=== PATIENT | female | born 1930 | race Caucasian/White ===

== ENCOUNTER 2017-11-27 20:42 | Emergency (ER) | payer MEDICAID, MEDICARE ==
[~2017-11-27] VITALS: Ht 162.6 cm; Wt 85.3 kg
[~2017-11-27 20:42] MED LIST: AMO500 PO; AMOX-355 PO; ASP81 PO; CIP500 PO; CIPR-326 PO; ESOM20CA31 PO; GAB300 PO; GABA-547 PO; LOR5 PO; MET500 PO; PER PO; PHENA100 PO; RANI-320 PO; SIMV-44 PO; SPIR25TA78 PO; SULF-198 PO; TOLT4CAP13 PO
--- NOTE | 2017-11-27 20:45 | ER Report ---
History and Physical Time Seen By MD: 20:45 HPI/ROS CHIEF COMPLAINT: Difficulty breathing, wet cough HISTORY OF PRESENT ILLNESS: 87-year-old female with a history of COPD O2 dependent on 2 L chronically. Been sick for 2 weeks. She diagnosed herself with what she thinks was the flu. She's continued to have a productive cough. She was feeling ill but has felt better now, but the cough persists, which worries her. She is unable to cough up any sputum or phlegm. She denies fever or chills. She denies chest pain. She denies leg swelling or calf pain. Patient with her padded of harsh wet cough REVIEW OF SYSTEMS: Respiratory: As above Cardiovascular: No chest pain, no palpitations. Gastrointestinal: No vomiting, no abdominal pain. Musculoskeletal: No back pain. Allergies: Coded Allergies: diphenhydramine (Verified Adverse Reaction, Mild, 10/27/14) Uncoded Allergies: ANESTHETICS (Allergy, Severe, MALIGNANT HYPERTHERMIA, 02/24/09) Home Meds Active Scripts Benzonatate 100 Mg Cap (TESSALON PERLE 100 MG CAP) 100 Mg Capsule, 100 MG PO TID Y for cough suppression, #20 CAP Prov:MINGEVELYN DO 11/27/17 Prednisone 10 Mg Tab (PREDNISONE 10 MG TAB) 10 Mg Tablet, 10 MG PO QDAY Y for reduce lung inflammation, #9 2 tabs daily for 3 days 1 tab daily for 3 days Prov:MINGEVELYN Will DO 11/27/17 Cefuroxime Axetil (CEFUROXIME) 250 Mg Tablet, 250 MG PO BID for infection, #14 TAB Prov:EVELYN LAI DO 11/27/17 Reported Medications Oxycodone Hcl/Acetaminophen (PERCOCET 5-325 MG TABLET) 1 Each Tablet, 1 EACH PO , TAB 11/27/17 Gabapentin (GABAPENTIN) 100 Mg Capsule, 100 MG PO TID, CAPSULE 10/27/14 Spironolactone (Spironolactone) 25 Mg Tablet, 12.5 MG PO DAILY, 0 Refills 09/08/10 Aspirin (Childrens Chewable Aspirin) 81 Mg Chew, 81 MG PO QDAY 09/08/10 Past Medical/Surgical History Patient has a past medical history of a cervical vascular accident, hypertension , asthma, pneumonia, COPD, urinary tract infections, arthritis, back pain. Patient has a surgical history of hysterectomy,. Aches and has a family history of malignant hyperthermia, diabetes, cervical vascular accident, coronary artery disease. Reviewed Nurses Notes: Yes Old Medical Records Reviewed: Yes Hx Smoking: Yes Smoking Status: Former Smoker Hx Substance Use Disorder: No Hx Alcohol Use: No Constitutional Vital Sign - Last 24 Hours 11/27/17 11/27/17 11/27/17 11/27/17 20:47 20:48 20:59 21:00 Temp 98.0 Pulse 84 70 Resp 20 B/P (MAP) 179/102 179/102 (127) Pulse Ox 85 94 O2 Delivery Room Air O2 Flow Rate 2.0 11/27/17 11/27/17 11/27/17 11/27/17 21:03 21:15 21:15 21:15 Pulse 62 62 Resp 19 16 B/P (MAP) 108/83 (91) Pulse Ox 98 94 O2 Delivery Nasal Cannula O2 Flow Rate 2.0 11/27/17 11/27/17 11/27/17 21:21 22:00 22:20 Pulse 67 62 64 Resp 16 14 B/P (MAP) 147/60 (89) 120/68 (85) Pulse Ox 94 95 O2 Delivery Nasal Cannula O2 Flow Rate 2 Physical Exam General Appearance: The patient is alert, has no immediate need for airway protection and no current signs of toxicity. Vital signs stable, pulse ox normal on baseline 2 L HEENT: Pupils equal and round no injection. TMs normal, oropharynx with moderate erythema, no exudate or petechiae Respiratory: Expiratory wheezing throughout lung davalos, no Rales Cardiac: regular rate and rhythm Gastrointestinal: Abdomen is soft and non tender, no masses, bowel sounds normal. Musculoskeletal: Neck: Neck is supple and non tender. No lymphadenopathy, no JVD Extremities have full range of motion and are non tender. Skin: No rashes or lesions. DIFFERENTIAL DIAGNOSIS: After history and physical exam differential diagnosis was considered for shortness of breath including but not limited to pulmonary infectious process, COPD, asthma, pulmonary embolus and congestive heart failure. Medical Decision Making Data Points Result Diagram: 11/27/17205711/27/172057 Laboratory Hematology Test 11/27/17 20:58 11/27/17 21:10 Red Blood Count 4.73 M/uL (4.17-5.56) Mean Corpuscular Volume 88.4 fL (80.0-96.0) Mean Corpuscular Hemoglobin 29.9 pg (26.0-33.0) Mean Corpuscular Hemoglobin Concent 33.9 g/dL (32.0-36.0) Red Cell Distribution Width 13.1 % (11.5-14.5) Mean Platelet Volume 9.9 fL (7.2-11.1) Neutrophils (%) (Auto) 52.8 % (39.4-72.5) Lymphocytes (%) (Auto) 35.6 % (17.6-49.6) Monocytes (%) (Auto) 6.5 % (4.1-12.4) Eosinophils (%) (Auto) 2.1 % (0.4-6.7) Basophils (%) (Auto) 3.0 % (0.3-1.4) Nucleated RBC Relative Count (auto) 0.0 /100WBC Neutrophils # (Auto) 4.7 K/uL (2.0-7.4) Lymphocytes # (Auto) 3.2 K/uL (1.3-3.6) Monocytes # (Auto) 0.6 K/uL (0.3-1.0) Eosinophils # (Auto) 0.2 K/uL (0.0-0.5) Basophils # (Auto) 0.3 K/uL (0.0-0.1) Nucleated RBC Absolute Count (auto) 0.00 K/uL Sodium Level 142 mmol/L (137-145) Potassium Level 3.8 mmol/L (3.5-5.0) Chloride Level 105 mmol/L (98-107) Carbon Dioxide Level 27 mmol/L (22-31) Blood Urea Nitrogen 15 mg/dl (7-18) Creatinine 0.60 mg/dl (0.52-1.04) Glomerular Filtration Rate Calc > 60.0 Random Glucose 117 mg/dl (75-110) Lactate 2.0 mmol/L (0.7-2.1) Calcium Level 9.3 mg/dl (8.4-10.2) Total Bilirubin 0.5 mg/dl (0.2-1.3) Aspartate Amino Transf (AST/SGOT) 31 U/L (0-35) Alanine Aminotransferase (ALT/SGPT) 33 U/L (0-56) Alkaline Phosphatase 93 U/L (0-126) Troponin I < 0.012 ng/ml C-Reactive Protein < 0.5 mg/dl (<1.0) B-Type Natriuretic Peptide 128 pg/ml (0-100) Total Protein 6.9 gm/dl (6.3-8.2) Albumin 3.9 g/dl (3.5-5.0) Influenza Type A Antigen Negative (NEGATIVE) Influenza Type B Antigen Negative (NEGATIVE) Chemistry Test 11/27/17 20:58 11/27/17 21:10 White Blood Count 8.9 k/uL (4.5-11.0) Red Blood Count 4.73 M/uL (4.17-5.56) Hemoglobin 14.2 g/dL (12.0-16.0) Hematocrit 41.8 % (34.0-47.0) Mean Corpuscular Volume 88.4 fL (80.0-96.0) Mean Corpuscular Hemoglobin 29.9 pg (26.0-33.0) Mean Corpuscular Hemoglobin Concent 33.9 g/dL (32.0-36.0) Red Cell Distribution Width 13.1 % (11.5-14.5) Platelet Count 219 K/uL (150-450) Mean Platelet Volume 9.9 fL (7.2-11.1) Neutrophils (%) (Auto) 52.8 % (39.4-72.5) Lymphocytes (%) (Auto) 35.6 % (17.6-49.6) Monocytes (%) (Auto) 6.5 % (4.1-12.4) Eosinophils (%) (Auto) 2.1 % (0.4-6.7) Basophils (%) (Auto) 3.0 % (0.3-1.4) Nucleated RBC Relative Count (auto) 0.0 /100WBC Neutrophils # (Auto) 4.7 K/uL (2.0-7.4) Lymphocytes # (Auto) 3.2 K/uL (1.3-3.6) Monocytes # (Auto) 0.6 K/uL (0.3-1.0) Eosinophils # (Auto) 0.2 K/uL (0.0-0.5) Basophils # (Auto) 0.3 K/uL (0.0-0.1) Nucleated RBC Absolute Count (auto) 0.00 K/uL Glomerular Filtration Rate Calc > 60.0 Lactate 2.0 mmol/L (0.7-2.1) Calcium Level 9.3 mg/dl (8.4-10.2) Total Bilirubin 0.5 mg/dl (0.2-1.3) Aspartate Amino Transf (AST/SGOT) 31 U/L (0-35) Alanine Aminotransferase (ALT/SGPT) 33 U/L (0-56) Alkaline Phosphatase 93 U/L (0-126) Troponin I < 0.012 ng/ml C-Reactive Protein < 0.5 mg/dl (<1.0) B-Type Natriuretic Peptide 128 pg/ml (0-100) Total Protein 6.9 gm/dl (6.3-8.2) Albumin 3.9 g/dl (3.5-5.0) Influenza Type A Antigen Negative (NEGATIVE) Influenza Type B Antigen Negative (NEGATIVE) EKG/Imaging EKG Interpretation 12 lead EK Rhythm: normal sinus rhythm [place]: normal QRS: normal ST segments: normal, diffuse T-wave flattening, nonspecific, comparison to previous EKG 06/22/16, no significant change Imaging X-ray: Two-view chest x-ray was obtained. I viewed the images myself on the PACS system. My interpretation of the images is: No infiltrate, no effusion, normal mediastinum. There is eventration of the right hemidiaphragm, Comparison to previous chest x-ray 06/22/60, no significant change. [The radiologist interpretation had no clinically significant variation from this interpretation]. ED Course/Re-evaluation Clinical Indication for ER IV: IV Access ED Course Patient was admitted to an examination room. H&P was done. The differential diagnoses was considered. On clinical examination, patient appears with what deep cough, repetitive coughing fits. She is unable to produce any sputum. She 's had no fevers. She states she does not feel particularly ill. Her vital signs are stable. Diagnostic evaluation is undertaken. EKG shows no evidence of ischemic changes compared to old EKG. Her chest x-ray is clear. Her white blood cell count is normal, without left shift. CRP is less than 0.5. Her lactate is normal. Her troponin is normal. Her BMP is slightly elevated. Patient's treated with a DuoNeb and Solu-Medrol 125 mg IV. Patient's results were discussed with her. See no indication for admission. However, she will likely need a course of antibiotics and a prednisone taper to improve her airway disease. She is advised to follow-up with primary care if unimproved in 3-5 days. Decision to Disposition Date: Nov 27, 2017 Decision to Disposition Time: 21:49 Depart Departure Latest Vital Signs Vital Signs Date Time Temp Pulse Resp B/P (MAP) Pulse Ox O2 Delivery O2 Flow Rate FiO2 11/27/17 22:20 64 14 120/68 (85) 95 Nasal Cannula 2 11/27/17 20:47 98.0 Impression: Primary Impression: COPD with acute exacerbation Condition: Improved Disposition: HOME OR SELF-CARE Referrals: MARIANA ALEXANDRA (PCP) New Scripts Benzonatate 100 Mg Cap (TESSALON PERLE 100 MG CAP) 100 Mg Capsule 100 MG PO TID Y for cough suppression, #20 CAP Prov: EVELYN LAI DO 11/27/17 Prednisone 10 Mg Tab (PREDNISONE 10 MG TAB) 10 Mg Tablet 10 MG PO QDAY Y for reduce lung inflammation, #9 2 tabs daily for 3 days 1 tab daily for 3 days Prov: EVELYN LAI DO 11/27/17 Cefuroxime Axetil (CEFUROXIME) 250 Mg Tablet 250 MG PO BID for infection, #14 TAB Prov: EVELYN LAI DO 11/27/17 Patient Instructions: Acute Bronchitis (ED), COPD (Chronic Obstructive Pulmonary Disease) (ED) Additional Instructions: Follow-up with your primary care physician if unimproved in 3-5 days EVELYN LAI DO Nov 27, 2017 20:45
[2017-11-27] MEDS ORDERED: NS(*) 0.9% 500 ML BAG 500 ML IV ONE (20:50)
[2017-11-27] MEDS ORDERED: methylPREDNIS SUCC 125 MG/2ML IVP ONE (20:50)
[2017-11-27] MEDS ORDERED: ALBUTEROL/IPRATROPIUM 3 ML NEB NEB ONE (20:50)
[2017-11-27] MEDS ORDERED: OXYC-865 PO (20:58)
[2017-11-27 21:16] LABS: PLATELET COUNT, AUTOMATED 219 K/uL (150-450)
--- NOTE | 2017-11-27 21:29 | EKG ---
FACILITY: [facility] PATIENT NAME: SHEEBA NEVILLE : [id number] MR: [id number] V: [id number] EXAM DATE: ORDERING PHYSICIAN: EVELYN LAI TECHNOLOGIST: FATIMAH Test Reason : DYSPNEA Blood Pressure : / mmHG Vent. Rate : 065 BPM Atrial Rate : 065 BPM P-R Int : 152 ms QRS Dur : 080 ms QT Int : 396 ms P-R-T Axes : 027 -35 017 degrees QTc Int : 411 ms Normal sinus rhythm Left axis deviation Nonspecific T wave abnormality R wave progression consistent with old ant/sep IA vs lead placement When compared with ECG of 22-JUN-2016 11:20, premature atrial complexes are no longer present QT has shortened Confirmed by CLARENCE AZUL ([id number]) on 11/28/2017 6:42:03 AM Referred By: Confirmed By:CLARENCE AZUL
[2017-11-27] MEDS ORDERED: PRED-1 PO (22:04)
[2017-11-27] MEDS ORDERED: CEFU250T11 PO (22:04)
[2017-11-27] MEDS ORDERED: BENZ100C4 PO (22:05)
[2017-11-27] MEDS ORDERED: CEFDINIR 300 MG CAP PO ONE (22:15)
[2017-11-27 22:20] VITALS: BP 120/68
--- NOTE | 2017-11-27 22:26 | RADIOLOGY IMAGING REPORT ---
[place] [facility] [place] NAME: Danielle Jaime : 1930 MR: [id number] V: [id number] EXAM DATE: ORDERING PHYSICIAN: EVELYN LAI TECHNOLOGIST: Location: [facility] [place] Patient: Danielle Jaime : 1930 Visit/Account:[id number] Date of Sevice: 11/27/2017 CHEST: Indication: Persistent cough and fever. Technique: Frontal and lateral views were obtained. Comparison: 09/03/2010 Skeletal and soft tissue structures: Intact and unremarkable. Heart and mediastinum: Within normal limits. Lung davalos: Well-expanded and clear. No focal or diffuse opacities. Pleural spaces: Unremarkable. Impression: No acute process or significant change. Report Dictated By: Isiah Huston MD at 11/27/2017 10:16 PM Report E-Signed By: Isiah Huston MD at 11/27/2017 10:21 PM [id number]
== END 2017-11-27 22:21 | disposition home or self-care (01) ==
LOC: ER 21:14
DX: J44.1 Chronic obstructive pulmonary disease with (acute) exacerbation (principal)
CPT/HCPCS: 36415; 71046; 83605; 83880; 84484; 85025; 86140; 87040; 87502; 93005; 94640; 99284; A9270; J2930; J7040; J7620; 82040; 82247; 82310; 82374; 82435; 82565; 82947; 84075; 84132; 84155; 84295; 84450; 84460; 84520; 96374

== ENCOUNTER 2018-01-29 16:25 | Observation (INO) | payer MEDICARE ==
[~2018-01-29] VITALS: Ht 162.6 cm; Wt 81.6 kg
[~2018-01-29 16:25] MED LIST changes: -GABA-549 PO; -LEVO25TA57 PO; -LEVO50TA86 PO; -LISI2.5T60 PO; -LISI5TAB25 PO; -OXYC-375 PO; -SIMV-54 PO; -SOLI5TAB PO
[2018-01-29] MEDS ORDERED: LEVO25TA57 PO (16:39)
[2018-01-29] MEDS ORDERED: ONDANSETRON 4 MG/2 ML VIAL IVP ONE ×4 (16:40→19:10)
[2018-01-29] MEDS ORDERED: SIMV-54 PO (16:41)
[2018-01-29] MEDS ORDERED: LISI5TAB25 PO (16:41)
--- NOTE | 2018-01-29 16:47 | ER Report ---
History and Physical Time Seen By MD: 16:39 Hx. of Stated Complaint: PT FELL WHILE TAKING CLOTHES OUT OF DRYER 30 MIN AGO (HEVER MARTINEZ) HPI/ROS CHIEF COMPLAINT: Right ankle pain HISTORY OF PRESENT ILLNESS: 87-year-old female patient presents to emergency room with complaint of right ankle pain. Patient states that she was getting close out of her dryer when she fell. She states she landed awkwardly on her right leg. She sensation having significant amounts of pain. She denies having any numbness or tingling to her ankle. EMS was contacted and they did come and bring the patient to the emergency room. She denies any head injury, neck pain, vomiting or diarrhea. Patient has been nauseated throughout the day. She states she is not taking any medication for this. REVIEW OF SYSTEMS: Respiratory: No cough, no dyspnea. Cardiovascular: No chest pain, no palpitations. Gastrointestinal: As noted above Musculoskeletal: As noted above (HEVER MARTINEZ) Allergies: Coded Allergies: diphenhydramine (Verified Adverse Reaction, Mild, 01/29/18) Uncoded Allergies: ANESTHETICS (Allergy, Severe, MALIGNANT HYPERTHERMIA, 02/24/09) Home Meds Reported Medications Lisinopril (LISINOPRIL) 5 Mg Tablet, 2.5 MG PO QDAY, TAB 01/29/18 Simvastatin (SIMVASTATIN) 40 Mg Tablet, 40 MG PO HS, TAB 01/29/18 Levothyroxine Sodium (SYNTHROID) 25 Mcg Tablet, 50 MCG PO QDAY 01/29/18 Oxycodone Hcl/Acetaminophen (PERCOCET 5-325 MG TABLET) 1 Each Tablet, 1 EACH PO , TAB 11/27/17 Gabapentin (GABAPENTIN) 100 Mg Capsule, 100 MG PO TID, CAPSULE 10/27/14 Spironolactone (Spironolactone) 25 Mg Tablet, 12.5 MG PO DAILY, 0 Refills 09/08/10 Aspirin (Childrens Chewable Aspirin) 81 Mg Chew, 81 MG PO QDAY 09/08/10 Discontinued Scripts Benzonatate 100 Mg Cap (TESSALON PERLE 100 MG CAP) 100 Mg Capsule, 100 MG PO TID Y for cough suppression, #20 CAP Prov:EVELYN LAI DO 11/27/17 Prednisone 10 Mg Tab (PREDNISONE 10 MG TAB) 10 Mg Tablet, 10 MG PO QDAY Y for reduce lung inflammation, #9 2 tabs daily for 3 days 1 tab daily for 3 days Prov:EVELYN LAI DO 11/27/17 Cefuroxime Axetil (CEFUROXIME) 250 Mg Tablet, 250 MG PO BID for infection, #14 TAB Prov:EVELYN LAI DO 11/27/17 Past Medical/Surgical History Patient has a past medical history of CVA, hypertension, murmur, asthma, pneumonia, COPD, diabetes, frequent UTIs, back pain. Patient has a surgical history of hysterectomy. Patient has a family medical history of CAD, stroke, malignant hyperthermia with her siblings. (HEVER MARTINEZ) Reviewed Nurses Notes: Yes (HEVER MARTINEZ) Hx Smoking: Yes Smoking Status: Former Smoker Hx Substance Use Disorder: No Hx Alcohol Use: No (HEVER MARTINEZ) Constitutional Vital Sign - Last 24 Hours 01/29/18 01/29/18 01/29/18 01/29/18 16:25 16:26 16:26 16:30 Temp 98.5 Pulse ??? 73 Resp 20 B/P (MAP) 116/69 (85) 116/69 123/73 (90) Pulse Ox 82 O2 Delivery Room Air 01/29/18 01/29/18 01/29/18 01/29/18 16:35 16:40 16:45 16:50 B/P (MAP) 123/74 (90) 113/66 (82) 109/101 (104) 123/65 (84) 01/29/18 01/29/18 01/29/18 01/29/18 16:55 17:00 17:05 17:10 Pulse 69 B/P (MAP) 116/80 (92) 125/77 (93) 101/82 (88) 140/55 (83) Pulse Ox 92 01/29/18 01/29/18 01/29/18 18:45 18:46 19:00 Pulse 79 109 Resp 20 15 B/P (MAP) 125/101 (109) 163/90 (114) 167/65 (99) Pulse Ox 95 Intake and Output 01/29/18 01/29/18 01/30/18 15:00 23:00 07:00 Output Total 15 ml Balance -15 ml (CASI CORREIA MD) Physical Exam General Appearance: The patient is alert, has no immediate need for airway protection and no current signs of toxicity. Respiratory: Chest is non tender, lungs are clear to auscultation. Cardiac: regular rate and rhythm Gastrointestinal: Abdomen is soft and non tender, no masses, bowel sounds normal. Musculoskeletal: Neck: Neck is supple and non tender. Extremities have full range of motion and are non tender. She does have obvious deformity of the right ankle, bruising noted to the medial malleolus. Skin: No rashes or lesions. DIFFERENTIAL DIAGNOSIS: After history and physical exam differential diagnosis was considered for fracture, dislocation (HEVER MARTINEZ) Medical Decision Making Data Points Result Diagram: 01/29/18 1614 01/29/18 1614 Laboratory Hematology Test 01/29/18 16:14 01/29/18 17:46 Red Blood Count 4.75 M/uL (4.17-5.56) Mean Corpuscular Volume 89.6 fL (80.0-96.0) Mean Corpuscular Hemoglobin 29.8 pg (26.0-33.0) Mean Corpuscular Hemoglobin Concent 33.2 g/dL (32.0-36.0) Red Cell Distribution Width 13.0 % (11.5-14.5) Mean Platelet Volume 10.3 fL (7.2-11.1) Neutrophils (%) (Auto) 59.4 % (39.4-72.5) Lymphocytes (%) (Auto) 31.2 % (17.6-49.6) Monocytes (%) (Auto) 7.4 % (4.1-12.4) Eosinophils (%) (Auto) 1.6 % (0.4-6.7) Basophils (%) (Auto) 0.4 % (0.3-1.4) Nucleated RBC Relative Count (auto) 0.0 /100WBC Neutrophils # (Auto) 5.2 K/uL (2.0-7.4) Lymphocytes # (Auto) 2.7 K/uL (1.3-3.6) Monocytes # (Auto) 0.7 K/uL (0.3-1.0) Eosinophils # (Auto) 0.1 K/uL (0.0-0.5) Basophils # (Auto) 0.0 K/uL (0.0-0.1) Nucleated RBC Absolute Count (auto) 0.00 K/uL Sodium Level 140 mmol/L (137-145) Potassium Level 3.8 mmol/L (3.5-5.0) Chloride Level 99 mmol/L (98-107) Carbon Dioxide Level 29 mmol/L (22-31) Blood Urea Nitrogen 16 mg/dl (7-18) Creatinine 0.70 mg/dl (0.52-1.04) Glomerular Filtration Rate Calc > 60.0 Random Glucose 146 mg/dl (75-110) Calcium Level 9.4 mg/dl (8.4-10.2) Total Bilirubin 0.5 mg/dl (0.2-1.3) Aspartate Amino Transf (AST/SGOT) 29 U/L (0-35) Alanine Aminotransferase (ALT/SGPT) 34 U/L (0-56) Alkaline Phosphatase 92 U/L (0-126) Total Protein 7.1 gm/dl (6.3-8.2) Albumin 4.1 g/dl (3.5-5.0) Lipase 73 U/L (23-300) Urine Color Yellow Urine Clarity Clear Urine pH 5.0 pH (4.8-9.5) Urine Specific [place] 1.027 Urine Protein Negative mg/dL (NEGATIVE) Urine Glucose (UA) Negative mg/dL (NEGATIVE) Urine Ketones Negative mg/dL (NEGATIVE) Urine Blood Negative (NEGATIVE) Urine Nitrite Negative (NEGATIVE) Urine Bilirubin Negative (NEGATIVE) Urine Urobilinogen 2.0 mg/dL (0.2-1.9) Urine Leukocyte Esterase Negative (NEGATIVE) Urine RBC <1 /HPF (0-2/HPF) Urine WBC 1 /HPF (0-5/HPF) Urine Squamous Epithelial Cells None /LPF (NONE-FEW) Urine Bacteria Negative /HPF (NONE-FEW) Urine Mucus None /HPF (NONE-FEW) Chemistry Test 01/29/18 16:14 01/29/18 17:46 White Blood Count 8.8 k/uL (4.5-11.0) Red Blood Count 4.75 M/uL (4.17-5.56) Hemoglobin 14.2 g/dL (12.0-16.0) Hematocrit 42.6 % (34.0-47.0) Mean Corpuscular Volume 89.6 fL (80.0-96.0) Mean Corpuscular Hemoglobin 29.8 pg (26.0-33.0) Mean Corpuscular Hemoglobin Concent 33.2 g/dL (32.0-36.0) Red Cell Distribution Width 13.0 % (11.5-14.5) Platelet Count 215 K/uL (150-450) Mean Platelet Volume 10.3 fL (7.2-11.1) Neutrophils (%) (Auto) 59.4 % (39.4-72.5) Lymphocytes (%) (Auto) 31.2 % (17.6-49.6) Monocytes (%) (Auto) 7.4 % (4.1-12.4) Eosinophils (%) (Auto) 1.6 % (0.4-6.7) Basophils (%) (Auto) 0.4 % (0.3-1.4) Nucleated RBC Relative Count (auto) 0.0 /100WBC Neutrophils # (Auto) 5.2 K/uL (2.0-7.4) Lymphocytes # (Auto) 2.7 K/uL (1.3-3.6) Monocytes # (Auto) 0.7 K/uL (0.3-1.0) Eosinophils # (Auto) 0.1 K/uL (0.0-0.5) Basophils # (Auto) 0.0 K/uL (0.0-0.1) Nucleated RBC Absolute Count (auto) 0.00 K/uL Glomerular Filtration Rate Calc > 60.0 Calcium Level 9.4 mg/dl (8.4-10.2) Total Bilirubin 0.5 mg/dl (0.2-1.3) Aspartate Amino Transf (AST/SGOT) 29 U/L (0-35) Alanine Aminotransferase (ALT/SGPT) 34 U/L (0-56) Alkaline Phosphatase 92 U/L (0-126) Total Protein 7.1 gm/dl (6.3-8.2) Albumin 4.1 g/dl (3.5-5.0) Lipase 73 U/L (23-300) Urine Color Yellow Urine Clarity Clear Urine pH 5.0 pH (4.8-9.5) Urine Specific [place] 1.027 Urine Protein Negative mg/dL (NEGATIVE) Urine Glucose (UA) Negative mg/dL (NEGATIVE) Urine Ketones Negative mg/dL (NEGATIVE) Urine Blood Negative (NEGATIVE) Urine Nitrite Negative (NEGATIVE) Urine Bilirubin Negative (NEGATIVE) Urine Urobilinogen 2.0 mg/dL (0.2-1.9) Urine Leukocyte Esterase Negative (NEGATIVE) Urine RBC <1 /HPF (0-2/HPF) Urine WBC 1 /HPF (0-5/HPF) Urine Squamous Epithelial Cells None /LPF (NONE-FEW) Urine Bacteria Negative /HPF (NONE-FEW) Urine Mucus None /HPF (NONE-FEW) Urinalysis Test 01/29/18 17:46 Urine Color Yellow Urine Clarity Clear Urine pH 5.0 pH (4.8-9.5) Urine Specific [place] 1.027 Urine Protein Negative mg/dL (NEGATIVE) Urine Glucose (UA) Negative mg/dL (NEGATIVE) Urine Ketones Negative mg/dL (NEGATIVE) Urine Blood Negative (NEGATIVE) Urine Nitrite Negative (NEGATIVE) Urine Bilirubin Negative (NEGATIVE) Urine Urobilinogen 2.0 mg/dL (0.2-1.9) Urine Leukocyte Esterase Negative (NEGATIVE) Urine RBC <1 /HPF (0-2/HPF) Urine WBC 1 /HPF (0-5/HPF) Urine Squamous Epithelial Cells None /LPF (NONE-FEW) Urine Bacteria Negative /HPF (NONE-FEW) Urine Mucus None /HPF (NONE-FEW) (CASI CORREIA MD) EKG/Imaging Imaging Right ankle, 2 views, and right tibia/fibula, 2 views. HISTORY: Fall, pain. Portions of the extremity are obscured by material outside of the patient. An oblique mildly comminuted fracture is present in the distal fibular diametaphysis resulting in moderate dorsal angulation and mild lateral displacement of the distal fragment. The ankle has a mild valgus alignment. An oblique comminuted fracture is present in the base of the medial malleolus resulting in 3-5 mm distraction of intra-articular fragments. The anterior aspect of the talotibial joint is markedly widened. A fracture may be present in the posterior malleolus although this area is partially obscured. Small spurs are present along the plantar and dorsal aspects the calcaneus. Mild soft tissue swelling is present in the ankle. Mild degenerative changes are present in the knee. The tibia and fibula are otherwise unremarkable. IMPRESSION: Ankle fracture dislocation. Report Dictated By: Alex Nunez MD at 01/29/2018 7:35 PM Report E-Signed By: Alex Nunez MD at 01/29/2018 7:39 PM Right ankle, 2 views, and right tibia/fibula, 2 views. HISTORY: Fall, pain. Portions of the extremity are obscured by material outside of the patient. An oblique mildly comminuted fracture is present in the distal fibular diametaphysis resulting in moderate dorsal angulation and mild lateral displacement of the distal fragment. The ankle has a mild valgus alignment. An oblique comminuted fracture is present in the base of the medial malleolus resulting in 3-5 mm distraction of intra-articular fragments. The anterior aspect of the talotibial joint is markedly widened. A fracture may be present in the posterior malleolus although this area is partially obscured. Small spurs are present along the plantar and dorsal aspects the calcaneus. Mild soft tissue swelling is present in the ankle. Mild degenerative changes are present in the knee. The tibia and fibula are otherwise unremarkable. IMPRESSION: Ankle fracture dislocation. Report Dictated By: Alex Nunez MD at 01/29/2018 7:35 PM Report E-Signed By: Alex Nunez MD at 01/29/2018 7:39 PM Right ankle, 2 views. HISTORY: Postreduction. COMPARISON: Right ankle 01/29/2018 at 1017 hours. The ankle is somewhat rotated on the frontal view. Displacement of medial malleolus, posterior malleolus, and distal fibular fracture fragments has decreased compared to previous. The anterior aspect of the talotibial joint is no longer widened. Mild soft tissue swelling is present in the ankle. Fine detail is obscured by overlying casting material. IMPRESSION: Closed reduction of trimalleolar fracture. Report Dictated By: Alex Nunez MD at 01/29/2018 7:42 PM Report E-Signed By: Alex Nunez MD at 01/29/2018 7:45 PM (HEVER MARTINEZ) ED Course/Re-evaluation ED Course Patient was admitted and examined, history and physical were obtained. Differential diagnoses were considered. On examination patient has obvious fracture of the right ankle with dislocation. The skin is tight on the medial aspect, there is bruising noted. Patient had an IV started and was given 50 g of fentanyl. X-rays done of the right ankle showed trimalleolar fracture. I did discuss the case with Dr. Newton, orthopedist. He did actually come into the emergency room to review another patient. He will to that and felt patient likely needed to have surgery. He wanted the patient follow-up with Dr. Tripathi with plan to have surgery next week. We did do a conscious sedation and reduction as described below. Patient was placed in a splint and repeat x-rays were done. The reduction appeared to be successful. A CAT scan was done at the request of Dr. Newton. I discussed the case with Dr. Marcy Arenas, [facility]. I concerned because of her age that she would not be able to go home. I requested the patient be admitted for pain control and physical therapy to help her become more mobile. She verbalized understanding and agreement with this plan. I discussed this with the patient and her daughter and they verbalized understanding and agreement with plan. Procedure: Dislocation reduction. The right ankle was reduced in the usual fashion without complications. Post reduction the patient's neurovascular exam is normal. Post reduction x-ray demonstrates reduction of the joint to the anatomic position. The procedure was performed by myself under direct supervision of Dr. Correia. Procedure: Splint placement. A posterior and stirrup splint was applied. After application of the splint I re-examined the patient. The splint was adequately immobilizing the joint and distal to the splint the patient's circulation and sensation was intact. Decision to Disposition Date: Jan 29, 2018 Decision to Disposition Time: 19:02 (HEVER MARTINEZ) ED Course Procedure: Procedural sedation. A pre-sedation evaluation was completed on the patient. Patient is an appropriate candidate for procedural sedation. The risks of the sedation were discussed with the patient. A time out was completed. The patient was reevaluated immediately prior to initiation of sedation. The patient was sedated with Ketamine. Ketamine was chosen because of concerns that the patient had with family history of malignant hyperthermia. The patient was monitored with continuous pulse oximetry and surveillance system monitor. There were no complications and no significant hypoxemia. I remained at the bedside for the sedation. The total time I spent in the procedural sedation was 20 min. Post sedation evaluation: Patient was alert and cooperative, hemodynamically stable with appropriate respiratory status, temperature and pain control. Had some nausea and vomiting post sedation, treated with anti-emetics as noted. (CASI CORREIA MD) Depart Departure Latest Vital Signs Vital Signs Date Time Temp Pulse Resp B/P (MAP) Pulse Ox O2 Delivery O2 Flow Rate FiO2 01/29/18 19:00 109 15 167/65 (99) 01/29/18 18:45 95 01/29/18 16:26 98.5 Room Air (CASI CORREIA MD) Impression: Primary Impression: Trimalleolar fracture of right ankle Condition: Improved Disposition: Admitted from ER Referrals: RADHA HANKS DO (PCP) [employer]/PA consult with MD: Verbally, Examined Patient MD Consult Note: Assisted with sedation and reduction. See above notes. (CASI CORREIA MD) Problem Qualifiers Primary Impression: Trimalleolar fracture of right ankle Encounter type: initial encounter Fracture type: closed Qualified Codes: S82.851A - Displaced trimalleolar fracture of right lower leg, initial encounter for closed fracture HEVER MARTINEZ Jan 29, 2018 16:47 CASI CORREIA MD Jan 29, 2018 18:56
[2018-01-29] MEDS ORDERED: fentaNYL CITR 100 MCG/2 ML AMP IVP ONE (16:50)
[2018-01-29 16:55] LABS: PLATELET COUNT, AUTOMATED 215 K/uL (150-450)
[2018-01-29] MEDS ORDERED: NS(*) 0.9% 1000 ML BAG 1,000 ML IV ONE ×2 (18:10→18:20)
[2018-01-29] MEDS ORDERED: KETAMINE HCL 200 MG/20 ML MDV IVP ONE (18:20)
[2018-01-29] MEDS ORDERED: KETAMINE HCL 500 MG/5 ML VIAL IVP ONE (18:25)
[2018-01-29] MEDS ORDERED: METOCLOPRAMIDE 10 MG/2 ML SDV IVP ONE (18:55)
--- NOTE | 2018-01-29 19:44 | RADIOLOGY IMAGING REPORT ---
FACILITY: [facility] - [place] PATIENT NAME: Danielle Jaime : 1930 MR: [id number] V: [id number] EXAM DATE: ORDERING PHYSICIAN: HEVER MARTINEZ TECHNOLOGIST: Location: [facility] - [place] Patient: Danielle Jaime : 1930 Visit/Account:[id number] Date of Sevice: 01/29/2018 Right ankle, 2 views, and right tibia/fibula, 2 views. HISTORY: Fall, pain. Portions of the extremity are obscured by material outside of the patient. An oblique mildly comminut ed fracture is present in the distal fibular diametaphysis resulting in moderate dorsal angulation an d mild lateral displacement of the distal fragment. The ankle has a mild valgus alignment. An oblique comminuted fracture is present in the base of the medial malleolus resulting in 3-5 mm distraction o f intra-articular fragments. The anterior aspect of the talotibial joint is markedly widened. A fract ure may be present in the posterior malleolus although this area is partially obscured. Small spurs a re present along the plantar and dorsal aspects the calcaneus. Mild soft tissue swelling is present i n the ankle. Mild degenerative changes are present in the knee. The tibia and fibula are otherwise un remarkable. IMPRESSION: Ankle fracture dislocation. Report Dictated By: Alex Nunez MD at 01/29/2018 7:35 PM Report E-Signed By: Alex Nunez MD at 01/29/2018 7:39 PM WSN:[id number]
--- NOTE | 2018-01-29 19:45 | RADIOLOGY IMAGING REPORT ---
FACILITY: [facility] - [place] PATIENT NAME: Danielle Jaime : 1930 MR: [id number] V: [id number] EXAM DATE: ORDERING PHYSICIAN: HEVER MARTINEZ TECHNOLOGIST: Location: [facility] - [place] Patient: Danielle Jaime : 1930 Visit/Account:[id number] Date of Sevice: 01/29/2018 Right ankle, 2 views, and right tibia/fibula, 2 views. HISTORY: Fall, pain. Portions of the extremity are obscured by material outside of the patient. An oblique mildly comminut ed fracture is present in the distal fibular diametaphysis resulting in moderate dorsal angulation an d mild lateral displacement of the distal fragment. The ankle has a mild valgus alignment. An oblique comminuted fracture is present in the base of the medial malleolus resulting in 3-5 mm distraction o f intra-articular fragments. The anterior aspect of the talotibial joint is markedly widened. A fract ure may be present in the posterior malleolus although this area is partially obscured. Small spurs a re present along the plantar and dorsal aspects the calcaneus. Mild soft tissue swelling is present i n the ankle. Mild degenerative changes are present in the knee. The tibia and fibula are otherwise un remarkable. IMPRESSION: Ankle fracture dislocation. Report Dictated By: Alex Nunez MD at 01/29/2018 7:35 PM Report E-Signed By: Alex Nunez MD at 01/29/2018 7:39 PM WSN:[id number]
--- NOTE | 2018-01-29 19:48 | RADIOLOGY IMAGING REPORT ---
FACILITY: [facility] PATIENT NAME: Danielle Jaime : 1930 MR: [id number] V: [id number] EXAM DATE: ORDERING PHYSICIAN: HEVER MARTINEZ TECHNOLOGIST: Location: [facility] [place] Patient: Danielle Jaime : 1930 Visit/Account:[id number] Date of Sevice: 01/29/2018 Right ankle, 2 views. HISTORY: Postreduction. COMPARISON: Right ankle 01/29/2018 at 1017 hours. The ankle is somewhat rotated on the frontal view. Displacement of medial malleolus, posterior malleo yoli, and distal fibular fracture fragments has decreased compared to previous. The anterior aspect of the talotibial joint is no longer widened. Mild soft tissue swelling is present in the ankle. Fine d etail is obscured by overlying casting material. IMPRESSION: Closed reduction of trimalleolar fracture. Report Dictated By: Alex Nunez MD at 01/29/2018 7:42 PM Report E-Signed By: Alex Nunez MD at 01/29/2018 7:45 PM WSN:[id number]
--- NOTE | 2018-01-29 20:24 | RADIOLOGY IMAGING REPORT ---
FACILITY: [facility] PATIENT NAME: Danielle Jaime : 1930 MR: [id number] V: [id number] EXAM DATE: ORDERING PHYSICIAN: HEVER MARTINEZ TECHNOLOGIST: Location: [facility] - [place] Patient: Danielle Jaime : 1930 Visit/Account:[id number] Date of Sevice: 01/29/2018 EXAMINATION: CT of the right ankle HISTORY: Fracture. TECHNIQUE: Contiguous axial images were obtained through the right ankle without intravenous contras t administration. Coronal and sagittal reformatted images were obtained from the axial source data. One of the following dose optimization techniques was utilized in the performance of this exam: Autom ated exposure control; adjustment of the mA and/or kV according to the patient's size; or use of an i terative reconstruction technique. Specific details can be referenced in the facility's radiology C T exam operational policy. COMPARISON: Right ankle radiographs dated 01/29/2018. FINDINGS: Bones: Mildly displaced trimalleolar fracture. Additional fractures of the anterior lateral corner o f the tibial plafond with small fracture fragments in the joint space. Os trigonum. Small calcaneal b one spurs. Small accessory navicular bone. Joint spaces: Small fracture fragments in the anterior lateral mortise joint. Alignment: Normal. Soft tissues: Mild soft tissue swelling around the fractures. IMPRESSION: 1. Mildly displaced trimalleolar fracture. 2. Additional fracture of the anterior lateral corner of the tibial plafond with small fracture fragm ents in the joint space. Report Dictated By: Reji Moreno MD at 01/29/2018 8:15 PM Report E-Signed By: Reji Moreno MD at 01/29/2018 8:20 PM WSN:[id number]
[2018-01-29 20:38] VITALS: BP 140/59
[2018-01-29] MEDS ORDERED: LISI2.5T60 PO (21:21)
[2018-01-29] MEDS ORDERED: OXYC-375 PO (21:21)
[2018-01-29] MEDS ORDERED: GABA-549 PO (21:22)
[2018-01-29] MEDS ORDERED: LEVO50TA86 PO (21:22)
[2018-01-29] MEDS ORDERED: SOLI5TAB PO (21:22)
[2018-01-29] MEDS ORDERED: PROMETHAZINE 25 MG/ML 1 ML AMP IVP PRN (21:30)
--- NOTE | 2018-01-29 22:27 | History & Physical ---
History of Present Illness Chief Complaint Fall with ankle pain. History of Present Illness The patient is an 87 year old female with PMH significant for HTN and CVA with residual R sided weakness who presents after falling at home while unloading the dryer. The patient states she bent over to get the clothing and lost her footing and fell backwards. She denies hitting her head or injuring anything other than her ankle. She also notes that she developed nausea today at about 11am. She drank a cup of coffee and then felt sick. She vomited several times. She denies chest pain, dizziness or lightheadedness. She denies diarrhea. The nausea has improved this evening after antiemetics in the ER. The patient states she feels the nausea and the fall are totally unrelated. She has had poor balance for many years. She has had a CVA in the past with some residual right sided weakness. She also has neuropathy. She usually goes barefooted at home so that she can better feel the surface she is walking on. THE PATIENT HAS A STRONG FH OF MALIGNANT HYPERTHERMIA. One sister at age 15 after surgery and a brother in his early 40s. The patient had a hysterectomy may years ago but did not have general anesthesia. Her procedure was done with spinal anesthesia. History Problems: (1) History of hysterectomy (2) Family history of malignant hyperthermia (3) Arthritis of back (4) COPD (chronic obstructive pulmonary disease) Status: Chronic (5) Hypoxia (6) Cardiac murmur (7) HTN (hypertension) Status: Chronic (8) History of CVA (cerebrovascular accident) Status: Chronic Home Meds Reported Medications Solifenacin Succinate (VESICARE) 5 Mg Tablet, 5 MG PO DAILY 01/29/18 Gabapentin (GABAPENTIN) 300 Mg Capsule, 300 MG PO TID, CAPSULE 01/29/18 Levothyroxine Sodium (LEVOTHYROXINE SODIUM) 50 Mcg Tablet, 50 MCG PO QDAY, TAB 01/29/18 Oxycodone Hcl/Acetaminophen (OXYCODONE-ACETAMINOPHEN 10-325) 1 Each Tablet, 1 TAB PO QID Y for PAIN 01/29/18 Lisinopril (LISINOPRIL) 2.5 Mg Tablet, 2.5 MG PO QDAY 01/29/18 Simvastatin (SIMVASTATIN) 40 Mg Tablet, 40 MG PO HS, TAB 01/29/18 Aspirin (Childrens Chewable Aspirin) 81 Mg Chew, 81 MG PO QDAY 09/08/10 Discontinued Reported Medications Lisinopril (LISINOPRIL) 5 Mg Tablet, 2.5 MG PO QDAY, TAB 01/29/18 Levothyroxine Sodium (SYNTHROID) 25 Mcg Tablet, 50 MCG PO QDAY 01/29/18 Oxycodone Hcl/Acetaminophen (PERCOCET 5-325 MG TABLET) 1 Each Tablet, 1 EACH PO , TAB 11/27/17 Gabapentin (GABAPENTIN) 100 Mg Capsule, 100 MG PO TID, CAPSULE 10/27/14 Spironolactone (Spironolactone) 25 Mg Tablet, 12.5 MG PO DAILY, 0 Refills 09/08/10 Discontinued Scripts Benzonatate 100 Mg Cap (TESSALON PERLE 100 MG CAP) 100 Mg Capsule, 100 MG PO TID Y for cough suppression, #20 CAP Prov:EVELYN LAI 11/27/17 Prednisone 10 Mg Tab (PREDNISONE 10 MG TAB) 10 Mg Tablet, 10 MG PO QDAY Y for reduce lung inflammation, #9 2 tabs daily for 3 days 1 tab daily for 3 days Prov:EVELYN LAI 11/27/17 Cefuroxime Axetil (CEFUROXIME) 250 Mg Tablet, 250 MG PO BID for infection, #14 TAB Prov:EVELYN LAI 11/27/17 Allergies: Coded Allergies: diphenhydramine (Verified Adverse Reaction, Mild, 01/29/18) Uncoded Allergies: ANESTHETICS (Allergy, Severe, MALIGNANT HYPERTHERMIA, 02/24/09) Patient History: CVA FATHER MOTHER BROTHER OR SISTER BROTHER OR SISTER BROTHER OR SISTER BROTHER OR SISTER BROTHER OR SISTER BROTHER OR SISTER BROTHER OR SISTER Malignant hyperthermia BROTHER OR SISTER BROTHER OR SISTER Other Social/Family Hx The patient lives in [place] with her grandson who cares for her. She is . She is a retired ER nurse. Hx Smoking: Yes Smoking Status: Former Smoker Caffeine/Cups Per Day: NONE Hx Alcohol Use: No Hx Substance Use Disorder: No History of IV Drug Use: No Review of Systems All Systems Reviewed/Normal: Yes, Except as Noted Neurological: Weakness (Mild residual right sided weakness after CVA.), No Dizziness Eyes: No Vision Change ENT: No Hearing Loss Cardiovascular: No Chest Pain Respiratory: No Shortness of Breath Gastrointestinal: Nausea, Vomiting, No Diarrhea Genitourinary: Urinary Incontinence Musculoskeletal: Pain (Back pain due to DJD.) Exam Vital Signs Vital Signs Date Time Temp Pulse Resp B/P (MAP) Pulse Ox O2 Delivery O2 Flow Rate FiO2 01/29/18 20:38 97.8 72 16 140/59 (86) 93 Nasal Cannula 2.0 General Appearance: Alert, Awake, No Acute Distress, Afebrile Neuro: Other Eyes: PERRLA Cardiovascular: Regular Rate and Rhythm (With 2/6 CALLY heard best at RUSB.), No Edema Respiratory: No Respiratory Distress, Clear to Auscultation GI: Abd Soft and Non-Tender Extremities: Other (Toes are cool to the touch but have good cap refill. Dorsalis pedis pulse palpable on L foot. R lower leg splinted. Toes with good cap refill.) Integumentary: Other (L foot 3rd toe with healing abrasion over top. 4th toe with bruising. ) Psych: Alert & Oriented X3, Appropriate Mood & Affect Medical Decision Making Data Points Result Diagram: 01/29/18 1614 01/29/18 1614 Item Value Date Time Calcium Level 9.4 mg/dl 01/29/18 1614 Total Bilirubin 0.5 mg/dl 01/29/18 1614 Aspartate Amino Transf (AST/SGOT) 29 U/L 01/29/18 1614 Alanine Aminotransferase (ALT/SGPT) 34 U/L 01/29/18 1614 Alkaline Phosphatase 92 U/L 01/29/18 1614 Total Protein 7.1 gm/dl 01/29/18 1614 Albumin 4.1 g/dl 01/29/18 1614 Lipase 73 U/L 01/29/18 1614 Urine Color Yellow 01/29/18 1746 Urine Clarity Clear 01/29/18 1746 Urine pH 5.0 pH 01/29/18 1746 Urine Specific [place] 1.027 01/29/18 1746 Urine Protein Negative mg/dL 01/29/18 1746 Urine Glucose (UA) Negative mg/dL 01/29/18 1746 Urine Ketones Negative mg/dL 01/29/18 1746 Urine Blood Negative 01/29/18 1746 Urine Nitrite Negative 01/29/18 1746 Urine Bilirubin Negative 01/29/18 174 Urine Urobilinogen 2.0 mg/dL 01/29/18 1746 Urine Leukocyte Esterase Negative 01/29/18 1746 Urine RBC <1 /HPF 01/29/18 1746 Urine WBC 1 /HPF 01/29/18 1746 Urine Bacteria Negative /HPF 01/29/18 174 Urine Squamous Epithelial Cells None /LPF 01/29/18 1746 Urine Mucus None /HPF 01/29/18 1746 EKG / Imaging Imaging FACILITY: [facility] PATIENT NAME: Danielle Jaime : 1930 MR: [id number] V: [id number] EXAM DATE: ORDERING PHYSICIAN: HEVER MARTINEZ TECHNOLOGIST: Location: [facility] - [place] Patient: Danielle Jaime : 1930 Visit/Account:[id number] Date of Sevice: 01/29/2018 EXAMINATION: CT of the right ankle HISTORY: Fracture. TECHNIQUE: Contiguous axial images were obtained through the right ankle without intravenous contrast administration. Coronal and sagittal reformatted images were obtained from the axial source data. One of the following dose optimization techniques was utilized in the performance of this exam: Automated exposure control; adjustment of the mA and/ or kV according to the patient's size; or use of an iterative reconstruction technique. Specific details can be referenced in the facility's radiology CT exam operational policy. COMPARISON: Right ankle radiographs dated 01/29/2018. FINDINGS: Bones: Mildly displaced trimalleolar fracture. Additional fractures of the anterior lateral corner of the tibial plafond with small fracture fragments in the joint space. Os trigonum. Small calcaneal bone spurs. Small accessory navicular bone. Joint spaces: Small fracture fragments in the anterior lateral mortise joint. Alignment: Normal. Soft tissues: Mild soft tissue swelling around the fractures. IMPRESSION: 1. Mildly displaced trimalleolar fracture. 2. Additional fracture of the anterior lateral corner of the tibial plafond with small fracture fragments in the joint space. Report Dictated By: Reji Moreno MD at 01/29/2018 8:15 PM Report E-Signed By: Reji Moreno MD at 01/29/2018 8:20 PM WSN:[id number] FACILITY: [facility] PATIENT NAME: Danielle Jaime : 1930 MR: [id number] V: [id number] EXAM DATE: [id number] ORDERING PHYSICIAN: HEVER MARTINEZ TECHNOLOGIST: Location: [facility] [place] Patient: Danielle Jaime : 1930 Visit/Account:[id number] Date of Sevice: 01/29/2018 Right ankle, 2 views. HISTORY: Postreduction. COMPARISON: Right ankle 01/29/2018 at 1017 hours. The ankle is somewhat rotated on the frontal view. Displacement of medial malleolus, posterior malleolus, and distal fibular fracture fragments has decreased compared to previous. The anterior aspect of the talotibial joint is no longer widened. Mild soft tissue swelling is present in the ankle. Fine detail is obscured by overlying casting material. IMPRESSION: Closed reduction of trimalleolar fracture. Report Dictated By: Alex Nunez MD at 01/29/2018 7:42 PM Report E-Signed By: Alex Nunez MD at 01/29/2018 7:45 PM WSN:[id number] FACILITY: [facility] PATIENT NAME: Danielle Jaime : 1930 MR: [id number] V: [id number] EXAM DATE: ORDERING PHYSICIAN: HEVER MARTINEZ TECHNOLOGIST: Location: [facility] [place] Patient: Danielle Jaime : 1930 Visit/Account:[id number] Date of Sevice: 01/29/2018 Right ankle, 2 views, and right tibia/fibula, 2 views. HISTORY: Fall, pain. Portions of the extremity are obscured by material outside of the patient. An oblique mildly comminuted fracture is present in the distal fibular diametaphysis resulting in moderate dorsal angulation and mild lateral displacement of the distal fragment. The ankle has a mild valgus alignment. An oblique comminuted fracture is present in the base of the medial malleolus resulting in 3-5 mm distraction of intra-articular fragments. The anterior aspect of the talotibial joint is markedly widened. A fracture may be present in the posterior malleolus although this area is partially obscured. Small spurs are present along the plantar and dorsal aspects the calcaneus. Mild soft tissue swelling is present in the ankle. Mild degenerative changes are present in the knee. The tibia and fibula are otherwise unremarkable. IMPRESSION: Ankle fracture dislocation. Report Dictated By: Alex Nunez MD at 01/29/2018 7:35 PM Report E-Signed By: Alex Nunez MD at 01/29/2018 7:39 PM WSN:[id number] FACILITY: [facility] PATIENT NAME: Danielle Jaime : 1930 MR: [id number] V: [id number] EXAM DATE: ORDERING PHYSICIAN: HEVER MARTINEZ TECHNOLOGIST: Location: [facility] [place] Patient: Danielle Jaime : 1930 Visit/Account:[id number] Date of Sevice: 01/29/2018 Right ankle, 2 views, and right tibia/fibula, 2 views. HISTORY: Fall, pain. Portions of the extremity are obscured by material outside of the patient. An oblique mildly comminuted fracture is present in the distal fibular diametaphysis resulting in moderate dorsal angulation and mild lateral displacement of the distal fragment. The ankle has a mild valgus alignment. An oblique comminuted fracture is present in the base of the medial malleolus resulting in 3-5 mm distraction of intra-articular fragments. The anterior aspect of the talotibial joint is markedly widened. A fracture may be present in the posterior malleolus although this area is partially obscured. Small spurs are present along the plantar and dorsal aspects the calcaneus. Mild soft tissue swelling is present in the ankle. Mild degenerative changes are present in the knee. The tibia and fibula are otherwise unremarkable. IMPRESSION: Ankle fracture dislocation. Report Dictated By: Alex Nunez MD at 01/29/2018 7:35 PM Report E-Signed By: Alex Nunez MD at 01/29/2018 7:39 PM WSN:[id number] Pre-Admit Course Medical Record Review: Yes Assessment and Plan Problems: (1) Trimalleolar fracture of right ankle Status: Acute Assessment & Plan: Ankle CT shows mildly displaced trimalleolar fracture and an additional fracture of the anterior lateral corner of the tibial plafond with small fracture fragments in the joint space. The patient has been splinted. Management per orthopedic surgery. Will place on Percocet for pain control. (2) COPD (chronic obstructive pulmonary disease) Status: Chronic Assessment & Plan: Preop CXR ordered. On oxygen at home continuously. (3) HTN (hypertension) Status: Chronic Assessment & Plan: On lisinopril 2.5mg daily. (4) Hyperlipidemia Status: Chronic Assessment & Plan: On simvastatin 40mg daily. (5) History of CVA (cerebrovascular accident) Status: Chronic Assessment & Plan: The patient uses a walker at home. She has very mild residual weakness in her R upper extremity. Balance is poor. (6) Family history of malignant hyperthermia Time Spent on Plan of Care: < 30 min Copies to: RADHA HANKS DO Venous Thromboembolism Antithrombotics Is Pt On Any Antithrombotics?: Yes (lovenox) Exam Sepsis Risk: No Definite Risk Problem Qualifiers (1) Trimalleolar fracture of right ankle: Encounter type: initial encounter Fracture type: closed Qualified Codes: S82.851A - Displaced trimalleolar fracture of right lower leg, initial encounter for closed fracture (2) HTN (hypertension): Hypertension type: essential hypertension Qualified Codes: I10 - Essential ( primary) hypertension MILAGROS DAVE MD Jan 29, 2018 22:26
[2018-01-29] MEDS ORDERED: INFLUENZA VIRUS VAC 0.5 ML SYR IM ONLY ONE (22:45)
[2018-01-29] MEDS: GABAPENTIN 300 MG CAP PO SCH (22:45)
[2018-01-29] MEDS ORDERED: ACETAMINOPHEN 325 MG TAB PO PRN (22:45)
[2018-01-29] MEDS: SIMVASTATIN 40 MG TAB PO SCH (22:45)
[2018-01-29 22:47] VITALS: BP 134/59
[2018-01-29] MEDS: NS(*) 0.9% 1000 ML BAG 1,000 ML IV PRN (23:45)
[2018-01-30 04:16] VITALS: BP 152/63
[2018-01-30] MEDS: LEVOTHYROXINE SOD 0.05 MG TAB PO SCH (05:30)
--- NOTE | 2018-01-30 06:31 | EKG ---
[place] [facility] [place] SHEEBA NEVILLE : [id number] MR: [id number] V: [id number] EXAM DATE: ORDERING PHYSICIAN: MILAGROS DAVE TECHNOLOGIST: FATIMAH Test Reason : PREOP Blood Pressure : / mmHG Vent. Rate : 071 BPM Atrial Rate : 071 BPM P-R Int : 156 ms QRS Dur : 080 ms QT Int : 412 ms P-R-T Axes : 033 -20 -24 degrees QTc Int : 447 ms Normal sinus rhythm Left axis deviation Poor R wave progression Nonspecific T wave abnormality Abnormal ECG Confirmed by MILAGROS ARMENDARIZ ([id number]) on 01/30/2018 6:50:04 AM Referred By: Confirmed By:MILAGROS ARMENDARIZ
[2018-01-30 06:48] LABS: PLATELET COUNT, AUTOMATED 227 K/uL (150-450)
--- NOTE | 2018-01-30 07:15 | RADIOLOGY IMAGING REPORT ---
FACILITY: [facility] - [place] PATIENT NAME: Danielle Jaime : 1930 MR: [id number] V: [id number] EXAM DATE: ORDERING PHYSICIAN: MILAGROS DAVE TECHNOLOGIST: Location: [facility] [place]: Danielle Jaime : 1930 Visit/Account:[id number] Date of Sevice: 01/30/2018 CHEST SINGLE AP Indication: Preop foot surgery. Comparison: None available Findings: December 07, 2017.Tortuous aorta with calcifications in the aortic knob. There is no focal infiltrate or lobar consolidation. No pneumothorax or pleural effusion. IMPRESSION: 1. No acute cardiopulmonary process. Report Dictated By: Jim German MD at 01/30/2018 7:09 AM Report E-Signed By: Jim German MD at 01/30/2018 7:10 AM WSN:[id number]
[2018-01-30 08:53] VITALS: BP 111/53
[2018-01-30] MEDS: GABAPENTIN 300 MG CAP PO SCH ×3 (09:04→20:25)
[2018-01-30] MEDS: ENOXAPARIN 40 MG/0.4ML SYR SC SCH (09:04)
[2018-01-30] MEDS: LISINOPRIL 5 MG TAB PO SCH (09:05)
--- NOTE | 2018-01-30 09:22 | Hospitalist Progress Note ---
Subjective Progress Notes Subjective Ankle is painful this am. Physical Exam Vital Signs Date Time Temp Pulse Resp B/P (MAP) Pulse Ox O2 Delivery O2 Flow Rate FiO2 01/30/18 08:53 98.2 70 16 111/53 (72) 94 Nasal Cannula 2.0 Intake and Output 01/31/18 07:00 Intake Total 120 ml Balance 120 ml Intake Oral 120 ml General Appearance: Alert, Awake, No Acute Distress, Afebrile Neuro: No Gross deficits Eyes: PERRLA Cardiovascular: Regular Rate and Rhythm (With systolic murmur.), No Edema Respiratory: No Respiratory Distress, Clear to Auscultation GI: Soft and Non-Tender Extremities: Warm, Perfused, Other (Good cap refill R. L foot with palpable DP pulse.) Integumentary: Generalized Fragile Skin Psych: Appropriate Mood & Affect Result Diagram: 01/30/1853801/30/18538 Assessment and Plan Problems: (1) Trimalleolar fracture of right ankle Status: Acute Assessment & Plan: Ankle CT shows mildly displaced trimalleolar fracture and an additional fracture of the anterior lateral corner of the tibial plafond with small fracture fragments in the joint space. The patient has been splinted. Management per orthopedic surgery. Will place on Percocet for pain control. Non-weight bearing per Dr. Tripathi. (2) COPD (chronic obstructive pulmonary disease) Status: Chronic Assessment & Plan: Preop CXR ordered. On oxygen at home continuously. (3) HTN (hypertension) Status: Chronic Assessment & Plan: On lisinopril 2.5mg daily. (4) Hyperlipidemia Status: Chronic Assessment & Plan: On simvastatin 40mg daily. (5) History of CVA (cerebrovascular accident) Status: Chronic Assessment & Plan: The patient uses a walker at home. She has very mild residual weakness in her R upper extremity. Balance is poor. (6) Family history of malignant hyperthermia Assessment & Plan: THE PATIENT HAS A STRONG FH OF MALIGNANT HYPERTHERMIA. One sister at age 15 after surgery and a brother in his early 40s. The patient had a hysterectomy may years ago but did not have general anesthesia. Her procedure was done with spinal anesthesia. Time Spent on Plan of Care: < 30 min Exam Sepsis Risk: No Definite Risk Problem Qualifiers (1) Trimalleolar fracture of right ankle: Encounter type: initial encounter Fracture type: closed Qualified Codes: S82.851A - Displaced trimalleolar fracture of right lower leg, initial encounter for closed fracture (2) HTN (hypertension): Hypertension type: essential hypertension Qualified Codes: I10 - Essential ( primary) hypertension MILAGROS DAVE MD Jan 30, 2018 09:22
[2018-01-30] MEDS: SOLIFENACIN SUCCINATE 5 MG TAB PO SCH (10:41)
[2018-01-30 12:03] VITALS: BP 116/72
[2018-01-30 14:54] VITALS: BP 109/55
[2018-01-30] MEDS ORDERED: CALCIUM CARBONATE 500 MG CHEW PO PRN (15:00)
[2018-01-30] MEDS ORDERED: BISACODYL 10 MG SUPP PR PRN (15:00)
[2018-01-30] MEDS ORDERED: MAGNESIUM HYDROXIDE* 30ML UDCP PO PRN (15:00)
[2018-01-30] MEDS: NS(*) 0.9% 1000 ML BAG 1,000 ML IV PRN (15:58)
[2018-01-30 16:36] VITALS: Ht 162.6 cm; Wt 81.6 kg
[2018-01-30] MEDS: DOCUSATE SODIUM 100 MG CAP PO SCH (20:25)
[2018-01-30] MEDS: SIMVASTATIN 40 MG TAB PO SCH (20:25)
[2018-01-30 21:33] VITALS: BP 112/61
[2018-01-31 00:21] VITALS: BP 108/91
[2018-01-31 03:19] VITALS: BP 113/49
[2018-01-31] MEDS: NS(*) 0.9% 1000 ML BAG 1,000 ML IV PRN ×2 (05:20→20:29)
[2018-01-31] MEDS: LEVOTHYROXINE SOD 0.05 MG TAB PO SCH (06:22)
--- NOTE | 2018-01-31 06:49 | Hospitalist Progress Note ---
Subjective Progress Notes Subjective This patient was admitted for an ankle fracture and her inability to ambulate. She had no acute events overnight. Patient Complains of: Cardiovascular: No: Chest Pain Respiratory: No: Shortness of Breath Physical Exam Vital Signs Date Time Temp Pulse Resp B/P (MAP) Pulse Ox O2 Delivery O2 Flow Rate FiO2 01/31/18 03:19 98.4 54 20 113/49 (70) 95 Nasal Cannula 2.0 Cardiovascular: Regular Rate and Rhythm Respiratory: Clear to Auscultation Result Diagram: 01/30/1853801/30/18538 Assessment and Plan Problems: (1) Trimalleolar fracture of right ankle Status: Acute Assessment & Plan: A CT scan shows mildly displaced trimalleolar fracture and an additional fracture of the anterior lateral corner of the tibial plafond with small fracture fragments in the joint space. She was placed in a splint in the emergency department. She was originally planning to return home, but is unable to ambulate with her nonweightbearing status. The plan is for her to go to [facility] and to see Dr. Mejia on Sunday. (2) COPD (chronic obstructive pulmonary disease) Status: Chronic Assessment & Plan: She is on chronic oxygen therapy. (3) HTN (hypertension) Status: Chronic Assessment & Plan: She is on chronic treatment with lisinopril. (4) Hyperlipidemia Status: Chronic Assessment & Plan: She is on chronic treatment with simvastatin. (5) Family history of malignant hyperthermia Assessment & Plan: THE PATIENT HAS A STRONG FH OF MALIGNANT HYPERTHERMIA. One sister at age 15 after surgery and a brother in his early 40s. The patient had a hysterectomy may years ago but did not have general anesthesia. Her procedure was done with spinal anesthesia. Exam Sepsis Risk: No Definite Risk Problem Qualifiers (1) Trimalleolar fracture of right ankle: Encounter type: initial encounter Fracture type: closed Qualified Codes: S82.851A - Displaced trimalleolar fracture of right lower leg, initial encounter for closed fracture (2) HTN (hypertension): Hypertension type: essential hypertension Qualified Codes: I10 - Essential ( primary) hypertension MARIO BAJWA DO Jan 31, 2018 06:49
[2018-01-31 08:00] VITALS: BP 105/63
[2018-01-31] MEDS: POLYETHYLENE GLYCOL 17 GM PKT PO SCH (08:17)
[2018-01-31] MEDS: DOCUSATE SODIUM 100 MG CAP PO SCH ×2 (08:17→20:24)
[2018-01-31] MEDS: LISINOPRIL 5 MG TAB PO SCH (08:17)
[2018-01-31] MEDS: SOLIFENACIN SUCCINATE 5 MG TAB PO SCH (08:17)
[2018-01-31] MEDS: GABAPENTIN 300 MG CAP PO SCH ×3 (08:17→20:24)
[2018-01-31] MEDS: ENOXAPARIN 40 MG/0.4ML SYR SC SCH (08:17)
[2018-01-31 11:36] VITALS: BP 111/84
[2018-01-31 14:49] VITALS: BP 112/56
[2018-01-31 19:33] VITALS: BP 122/60
[2018-01-31] MEDS: SIMVASTATIN 40 MG TAB PO SCH (20:24)
[2018-02-01 00:54] VITALS: BP 119/56
[2018-02-01 05:04] VITALS: BP 125/68
[2018-02-01] MEDS: LEVOTHYROXINE SOD 0.05 MG TAB PO SCH (05:15)
[2018-02-01 07:41] VITALS: BP 107/64
[2018-02-01] MEDS: GABAPENTIN 300 MG CAP PO SCH (08:24)
[2018-02-01] MEDS: SOLIFENACIN SUCCINATE 5 MG TAB PO SCH (08:24)
[2018-02-01] MEDS: DOCUSATE SODIUM 100 MG CAP PO SCH (08:25)
[2018-02-01] MEDS: LISINOPRIL 5 MG TAB PO SCH (08:25)
[2018-02-01] MEDS: ENOXAPARIN 40 MG/0.4ML SYR SC SCH (08:25)
[2018-02-01] MEDS: POLYETHYLENE GLYCOL 17 GM PKT PO SCH (08:25)
--- NOTE | 2018-02-01 08:52 | Hospitalist Depart ---
Discharge Summary Reason for Hosp/Final Diag: (1) Trimalleolar fracture of right ankle Status: Acute Hospital Course & Plan: The fall occurred secondary to loosing her footing. A CT scan shows mildly displaced trimalleolar fracture and an additional fracture of the anterior lateral corner of the tibial plafond with small fracture fragments in the joint space. She was placed in a splint in the emergency department. She was originally planning to return home, but was unable to ambulate with her nonweightbearing status. The plan is for her to go to [facility] to work on transitions and to see Dr. Mejia in his clinic on Sunday. She is getting Lovenox 40mg a day for blood clot prevention. (2) Family history of malignant hyperthermia Hospital Course & Plan: THE PATIENT HAS A STRONG FH OF MALIGNANT HYPERTHERMIA. One sister at age 15 after surgery and a brother in his early 40s. The patient had a hysterectomy may years ago but did not have general anesthesia. Her procedure was done with spinal anesthesia. (3) COPD (chronic obstructive pulmonary disease) Status: Chronic Hospital Course & Plan: She is on chronic oxygen therapy. (4) HTN (hypertension) Status: Chronic Hospital Course & Plan: She is on chronic treatment with lisinopril. (5) Hyperlipidemia Status: Chronic Hospital Course & Plan: She is on chronic treatment with simvastatin. Departure Weight (Pounds): 180 Result Diagram: 01/30/1853801/30/18538 Condition: No Change Discharge Instructions Home Meds Reported Medications Solifenacin Succinate (VESICARE) 5 Mg Tablet, 5 MG PO DAILY 01/29/18 Gabapentin (GABAPENTIN) 300 Mg Capsule, 300 MG PO TID, CAPSULE 01/29/18 Levothyroxine Sodium (LEVOTHYROXINE SODIUM) 50 Mcg Tablet, 50 MCG PO QDAY, TAB 01/29/18 Oxycodone Hcl/Acetaminophen (OXYCODONE-ACETAMINOPHEN 10-325) 1 Each Tablet, 1 TAB PO QID Y for PAIN 01/29/18 Lisinopril (LISINOPRIL) 2.5 Mg Tablet, 2.5 MG PO QDAY 01/29/18 Simvastatin (SIMVASTATIN) 40 Mg Tablet, 40 MG PO HS, TAB 01/29/18 Aspirin (Childrens Chewable Aspirin) 81 Mg Chew, 81 MG PO QDAY 09/08/10 Discontinued Reported Medications Lisinopril (LISINOPRIL) 5 Mg Tablet, 2.5 MG PO QDAY, TAB 01/29/18 Levothyroxine Sodium (SYNTHROID) 25 Mcg Tablet, 50 MCG PO QDAY 01/29/18 Oxycodone Hcl/Acetaminophen (PERCOCET 5-325 MG TABLET) 1 Each Tablet, 1 EACH PO , TAB 11/27/17 Gabapentin (GABAPENTIN) 100 Mg Capsule, 100 MG PO TID, CAPSULE 10/27/14 Spironolactone (Spironolactone) 25 Mg Tablet, 12.5 MG PO DAILY, 0 Refills 09/08/10 Discontinued Scripts Benzonatate 100 Mg Cap (TESSALON PERLE 100 MG CAP) 100 Mg Capsule, 100 MG PO TID Y for cough suppression, #20 CAP Prov:EVELYN LAI DO 11/27/17 Prednisone 10 Mg Tab (PREDNISONE 10 MG TAB) 10 Mg Tablet, 10 MG PO QDAY Y for reduce lung inflammation, #9 2 tabs daily for 3 days 1 tab daily for 3 days Prov:EVELYN LAI DO 11/27/17 Cefuroxime Axetil (CEFUROXIME) 250 Mg Tablet, 250 MG PO BID for infection, #14 TAB Prov:EVELYN LAI DO 11/27/17 Diet: Regular Special Instructions: Sit to stand with NWB to Right lower exteremity Venous Thromboembolism Antithrombotics Is Pt On Any Antithrombotics?: Yes (lovenox) Problem Qualifiers (1) Trimalleolar fracture of right ankle: Encounter type: initial encounter Fracture type: closed Qualified Codes: S82.851A - Displaced trimalleolar fracture of right lower leg, initial encounter for closed fracture (2) HTN (hypertension): Hypertension type: essential hypertension Qualified Codes: I10 - Essential ( primary) hypertension CLARENCE AZUL MD Feb 01, 2018 08:52
== END 2018-02-01 09:33 ==
LOC: ER 16:39 → INTOOBSV 19:13 → MED 19:13
PROVIDERS: ADMIT Internal Medicine; ATTEND Internal Medicine
DX: S82.851A Displaced trimalleolar fracture of right lower leg, initial encounter for closed fracture (principal); W18.30XA Fall on same level, unspecified, initial encounter; J44.9 Chronic obstructive pulmonary disease, unspecified; I10 Essential (primary) hypertension; E78.5 Hyperlipidemia, unspecified; Z86.73 Personal history of transient ischemic attack (TIA), and cerebral infarction without residual deficits; Z80.9 Family history of malignant neoplasm, unspecified; G62.9 Polyneuropathy, unspecified; Z79.82 Long term (current) use of aspirin
CPT/HCPCS: 27818; 36415; 71045; 73590; 73600; 73610; 73700; 81001; 83036; 83690; 84484; 85025; 93005; 96361; 96374; 96375; 96376; 97162; 97165; 97530; 97535; 99285; A4353; A9270; G0378; J1650; J2405; J2765; J3010; J7030; 82040; 82247; 82310; 82374; 82435; 82565; 82947; 84075; 84132; 84155; 84295; 84450; 84460; 84520; 96372; 99152

== ENCOUNTER → 2018-01-29 | Outpatient (CLI) | payer MEDICARE ==
[~2018-01-29] MED LIST changes: +BENZ100C4 PO; +CEFU250T11 PO; +GABA-549 PO; +LEVO25TA57 PO; +LEVO50TA86 PO; +LISI2.5T60 PO; +LISI5TAB25 PO; +OXYC-375 PO; +OXYC-865 PO; +PRED-1 PO; +SIMV-54 PO; +SOLI5TAB PO
[2018-02-02 10:59] VITALS: BMI 34.3
== END ==
LOC: AMB 15:50
PROVIDERS: ATTEND Nurse Practitioner
DX: M25.571 Pain in right ankle and joints of right foot (principal); M21.961 Unspecified acquired deformity of right lower leg; W18.30XA Fall on same level, unspecified, initial encounter; Z91.81 History of falling; Y92.028 Other place in mobile home as the place of occurrence of the external cause
CPT/HCPCS: A0425; A0427

== ENCOUNTER 2018-02-01 11:00 | Inpatient (IN) | payer MEDICARE ==
[~2018-02-01] VITALS: Ht 162.6 cm; Wt 88.6 kg
[~2018-02-01 11:00] MED LIST changes: +GABA-549 PO; +LEVO25TA57 PO; +LEVO50TA86 PO; +LISI2.5T60 PO; +LISI5TAB25 PO; +OXYC-375 PO; +SIMV-54 PO; +SOLI5TAB PO
[2018-02-01] MEDS ORDERED: MAGNESIUM HYDROXIDE* 30ML UDCP PO PRN (11:22)
[2018-02-01] MEDS ORDERED: BISACODYL 10 MG SUPP PR PRN (11:22)
[2018-02-01] MEDS ORDERED: ACETAMINOPHEN 325 MG TAB PO PRN (11:22)
[2018-02-01] MEDS ORDERED: CALCIUM CARBONATE 500 MG CHEW PO PRN (11:22)
[2018-02-01 11:42] VITALS: BP 122/45
--- NOTE | 2018-02-01 11:42 | Consultant Pharmacy Review ---
Chief Clerk Shelter Review Medication Review Do All Mecications have a Diag: Yes Disease-Drug Interactions History of Falls/Fractures: Anticonvulsants, Opioids Other General Cautions Lexicomp Interaction Analysis A = No known interaction C = Monitor therapy X = Avoid combination B = No action needed D = Consider therapy modification Drugs in this analysis: Acetaminophen; Bisacodyl; Docusate Sodium (SYN); Lovenox ; Milk of Magnesia [OTC]; MiraLax [OTC]; Neurontin; Percocet; Prinivil; Synthroid; Tums Regular Strength (CAN); VESIcare; Zocor * Drug-Drug Interactions D Bisacodyl Milk of Magnesia [OTC] (Antacids) D Bisacodyl Tums Regular Strength (CAN) (Antacids) D Milk of Magnesia [OTC] (Antacids) Neurontin (Gabapentin) D Milk of Magnesia [OTC] (Magnesium Salts) Neurontin (Gabapentin) Depends on Route D Milk of Magnesia [OTC] (Magnesium Salts) Synthroid (Levothyroxine) Depends on Route D Neurontin (APPLIANCE INSTALLER Depressants) Percocet (OxyCODONE) D Neurontin (Gabapentin) Tums Regular Strength (CAN) (Antacids) D Synthroid (Thyroid Products) Tums Regular Strength (CAN) (Calcium Salts) C Lovenox (Heparins (Low Molecular Weight)) Prinivil (Angiotensin-Converting Enzyme Inhibitors) C Percocet (Opioid Analgesics) VESIcare (Anticholinergic Agents) B Acetaminophen Percocet (Opioid Analgesics) Acetaminophen Percocet Pneumococcal Vaccine HX Pneumo Vac ([id number]): Yes HX Pneumo Vac (Pneumovax): Yes Comments Regarding the Review Patient is up to date on vaccinations. Please re-evaluate Percocet use in 2 weeks due to fall risk. MD Notified? MD Notified?: No JAMES HAMMOND Feb 01, 2018 11:42
--- NOTE | 2018-02-01 13:41 | PT ECF NOTE ---
Type of Note: Initial Note Primary Medical Diagnosis: Trimalleolar fracture of the R) ankle, *NWB Physical Therapy Evaluation Date: 02/01/18 SUBJECTIVE: Prior Hospitalization: [facility] 01/29/18-02/01/18 Prior Level of Function: Tommy with RW, pt reports falls at home Prior Living Status: Mobile home, Living with grandson Community Services: No known needs Home Accessibility: 4 stairs with rails Equipment Owned: Front wheeled walker Medical Complications/Past Medical History: See EMR Psychosocial Support: Case Management reports that pt's children plan to come live with pt in [place] upon d/c Pain Scale (0-10): 06/28 OBJECTIVE: Strength: Right Lower Extremity: DF: NT, splint in place Knee flexion: >3/5 Knee extension: >3/5 Hip flexion: 4/5 Left Lower Extremity: DF: 4/5 Knee flexion: 4/5 Knee extension: 4/5 Hip flexion: 4/5 ROM: (please note any abnormalities) R) ankle in splint Sensation: (please note any abnormalities) WNL Other Neuro findings: None noted Bed Mobility: Benson supine to sit Transfers: CGA with EZ/Patient assisted lift Gait: Pt unable Stairs: Pt unable Timed Up and Go (>12 seconds indicated increased risk for falls): Pt unable ASSESSMENT: PT/OT ECF co eval complete. Pt is NWB on the R) LE, pt is aware of this precaution. Pt requires Benson for supine to sit. Pt was instructed in STS transfer with RW, pt able to rise to stand with CGA. With attempt to stand pivot transfer to the chair, the patient was unable to initiate movement of the L) LE while maintaining weightbearing status of the R) LE. Pt completed STS with EZ lift and CGA, with good maintenance of WB status of R) LE. The patient was provided with list of equipment that will be necessary upon d/c home. The patient will benefit from skilled PT to facilitate increased independence with functional mobility. Problem List/Current Limitations: Pain Decreased WB Decreased activity areli Decreased strength Decreased ROM Decreased balance Short Term Goals: 1: Pt to complete bed mobility with SBA 2: Pt to complete stand pivot transfers with RW, to/from W/C. 3: Pt and pt's family to receive education regarding appropriate techniques to access home environment with 4 stairs. 4: Pt to complete w/c mobility x150' with turns and SBA Senior Care Goals: Pt to discharge to safest discharge location with increased independence and decreased risk of falls Patient Goals: Pt plans to d/c home Rehabilitation Prognosis: Fair Barriers for Discharge: NWB status of R) LE, home accessibility PLAN: The patient will benefit from skilled physical therapy services 5 times per week for 2 weeks including: Therapeutic Exercise Therapeutic Activities Transfer Training Gait Training Stair Training Manual Therapy Safety Training Neuromuscular Re-educ. Pt/Caregiver Training Bed Mobility Thank you for this referral. If you have any questions, concerns, or comments about this report or plan, please contact me at . Regla Baca, PT, DPT MTDD
--- NOTE | 2018-02-01 14:05 | OT ECF NOTE ---
Type of Note: Initial Note Primary Medical Diagnosis: Right trimallelor fracture of ankle (pt. is NON WEIGHT BEARING) and will have Surgery on 02/05/18. Occupational Therapy Evaluation Date: 02-01-18 SUBJECTIVE: Prior Hospitalization: On med/ surgical floor from 01/29/18 to 02/01/18. Prior Level of Function: Independent with all ADL's and laundry activities. Prior Living Status: Mobile home Assist by family, lives with grandson Community Services: No known needs Home Accessibility: Stairs with rails Tub/shower combination Equipment Owned: Front wheeled walker Medical Complications/Past Medical History: Please refer to chart for details. Psychosocial Support: Very supportive family. Pain Scale (0-10): 8/10 in RLE OBJECTIVE: Strength: MMT: Right Left Shoulder Flexion [*] [*] Elbow Flexion [*] [*] Wrist Extension [*] [*] Meat Stuffer [*] [*] (5= normal, 4= good, 3= fair, 2= poor, 1= trace) ROM: WFL Functional Transfer: Assistive Device: EZ/Patient assisted lift Transfer Ability: CGA Pt. not able to perform stand pivot transfer with use of FWW (not able to maintain RLE non weight bearing). ADL: Upper body dressing: Assistive device: Upper body dressing ability: Lower body dressing: Assistive device: Lower body dressing ability: Maximum assistance Toileting: Assistive device: Toileting ability: Maximum assistance Grooming/hygiene: Seated Assistive device: Grooming ability: Set-up Bathing: Assistive device: Bathing ability: N/T Standardized Assessment: Penny Index of Activities of Daily Living- Pt. scored 8/20 on this index on evaluation. ASSESSMENT: Pt. is an 87 year old woman who fell at home while taking clothes out of her dryer. Pt. resides in [place] in a mobile home with her grandson, with 4 stairs to access home and no stairs within. Pt. has a tub/shower combination and only owns an walker. Pt.'s grandson completed all the cooking, cleaning and grocery shopping. Pt. has a very supportive family that would like for her to return to home (not [facility] subacute rehab) following d/c from ECF. Pt. would benefit from OT services 5 x/week to address independence with ADL, transfers and DME acquisition. Problem List/Current Limitations: Pain Decreased WB Decreased activity areli Decreased sensation Decreased coordination Short Term Goals: 1. Pt. to perform toileting activities with Mod A. 2. Pt. to perform showering activities with MOd A. 3. Pt. to perform g/h activities with OSBORNE. 4. Pt. to perform dressing activities with Mod A. 5. Pt. to increase Penny INdex Score by 2 points. Market Risk Manager Goals: return home. Patient Goals: return home . Rehabilitation Prognosis: Fair Barriers to Discharge: Pt. has stairs to access home and in likely to be NWB in RLE s/p surgery. PLAN: The patient will benefit from skilled occupational therapy services 5 times per week for 2 weeks including: Ther ex ADL training Safety training Ther act IADL training Transfer training Adaptive equip training Bed mobility Thank you for this referral. If you have any questions, concerns, or comments about this report or plan, please contact me at . Bren Anne, OTR/L Occupational Therapist DOMINIC
[2018-02-01] MEDS: GABAPENTIN 300 MG CAP PO SCH ×2 (14:13→21:05)
[2018-02-01 17:15] VITALS: BP 133/82
--- NOTE | 2018-02-01 18:41 | ECF H&P BLANK ---
[facility] H&P UPDATE History of Present Illness Chief Complaint Fall with ankle pain. History of Present Illness The patient is an 87 year old female with PMH significant for HTN and CVA with residual R sided weakness who presents after falling at home while unloading the dryer. The patient states she bent over to get the clothing and lost her footing and fell backwards. She denies hitting her head or injuring anything other than her ankle. She also notes that she developed nausea today at about 11am. She drank a cup of coffee and then felt sick. She vomited several times. She denies chest pain, dizziness or lightheadedness. She denies diarrhea. The nausea has improved this evening after antiemetics in the ER. The patient states she feels the nausea and the fall are totally unrelated. She has had poor balance for many years. She has had a CVA in the past with some residual right sided weakness. She also has neuropathy. She usually goes barefooted at home so that she can better feel the surface she is walking on. THE PATIENT HAS A STRONG FH OF MALIGNANT HYPERTHERMIA. One sister at age 15 after surgery and a brother in his early 40s. The patient had a hysterectomy may years ago but did not have general anesthesia. Her procedure was done with spinal anesthesia. History Problems: (1) History of hysterectomy (2) Family history of malignant hyperthermia (3) Arthritis of back (4) COPD (chronic obstructive pulmonary disease) Status: Chronic (5) Hypoxia (6) Cardiac murmur (7) HTN (hypertension) Status: Chronic (8) History of CVA (cerebrovascular accident) Status: Chronic Home Meds Reported Medications Solifenacin Succinate (VESICARE) 5 Mg Tablet, 5 MG PO DAILY 01/29/18 Gabapentin (GABAPENTIN) 300 Mg Capsule, 300 MG PO TID, CAPSULE 01/29/18 Levothyroxine Sodium (LEVOTHYROXINE SODIUM) 50 Mcg Tablet, 50 MCG PO QDAY, TAB 01/29/18 Oxycodone Hcl/Acetaminophen (OXYCODONE-ACETAMINOPHEN 10-325) 1 Each Tablet, 1 TAB PO QID Y for PAIN 01/29/18 Lisinopril (LISINOPRIL) 2.5 Mg Tablet, 2.5 MG PO QDAY 01/29/18 Simvastatin (SIMVASTATIN) 40 Mg Tablet, 40 MG PO HS, TAB 01/29/18 Aspirin (Childrens Chewable Aspirin) 81 Mg Chew, 81 MG PO QDAY 09/08/10 Discontinued Reported Medications Lisinopril (LISINOPRIL) 5 Mg Tablet, 2.5 MG PO QDAY, TAB 01/29/18 Levothyroxine Sodium (SYNTHROID) 25 Mcg Tablet, 50 MCG PO QDAY 01/29/18 Oxycodone Hcl/Acetaminophen (PERCOCET 5-325 MG TABLET) 1 Each Tablet, 1 EACH PO , TAB 11/27/17 Gabapentin (GABAPENTIN) 100 Mg Capsule, 100 MG PO TID, CAPSULE 10/27/14 Spironolactone (Spironolactone) 25 Mg Tablet, 12.5 MG PO DAILY, 0 Refills 09/08/10 Discontinued Scripts Benzonatate 100 Mg Cap (TESSALON PERLE 100 MG CAP) 100 Mg Capsule, 100 MG PO TID Y for cough suppression, #20 CAP Prov:EVELYN LAI DO 11/27/17 Prednisone 10 Mg Tab (PREDNISONE 10 MG TAB) 10 Mg Tablet, 10 MG PO QDAY Y for reduce lung inflammation, #9 2 tabs daily for 3 days 1 tab daily for 3 days Prov:EVELYN LAI DO 11/27/17 Cefuroxime Axetil (CEFUROXIME) 250 Mg Tablet, 250 MG PO BID for infection, #14 TAB Prov:EVELYN LAI DO 11/27/17 Allergies: Coded Allergies: diphenhydramine (Verified Adverse Reaction, Mild, 01/29/18) Uncoded Allergies: ANESTHETICS (Allergy, Severe, MALIGNANT HYPERTHERMIA, 02/24/09) Patient History: CVA FATHER MOTHER BROTHER OR SISTER BROTHER OR SISTER BROTHER OR SISTER BROTHER OR SISTER BROTHER OR SISTER BROTHER OR SISTER BROTHER OR SISTER Malignant hyperthermia BROTHER OR SISTER BROTHER OR SISTER Other Social/Family Hx The patient lives in [place] with her grandson who cares for her. She is . She is a retired ER nurse. Hx Smoking: Yes Smoking Status: Former Smoker Caffeine/Cups Per Day: NONE Hx Alcohol Use: No Hx Substance Use Disorder: No History of IV Drug Use: No Review of Systems All Systems Reviewed/Normal: Yes, Except as Noted Neurological: Weakness (Mild residual right sided weakness after CVA.), No Dizziness Eyes: No Vision Change ENT: No Hearing Loss Cardiovascular: No Chest Pain Respiratory: No Shortness of Breath Gastrointestinal: Nausea, Vomiting, No Diarrhea Genitourinary: Urinary Incontinence Musculoskeletal: Pain (Back pain due to DJD.) Exam Vital Signs Vital Signs Date Time Temp Pulse Resp B/P (MAP) Pulse Ox O2 Delivery O2 Flow Rate FiO2 01/29/18 20:38 97.8 72 16 140/59 (86) 93 Nasal Cannula 2.0 General Appearance: Alert, Awake, No Acute Distress, Afebrile Neuro: Other Eyes: PERRLA Cardiovascular: Regular Rate and Rhythm (With 2/6 CALLY heard best at RUSB.), No Edema Respiratory: No Respiratory Distress, Clear to Auscultation GI: Abd Soft and Non-Tender Extremities: Other (Toes are cool to the touch but have good cap refill. Dorsalis pedis pulse palpable on L foot. R lower leg splinted. Toes with good cap refill.) Integumentary: Other (L foot 3rd toe with healing abrasion over top. 4th toe with bruising. ) Psych: Alert & Oriented X3, Appropriate Mood & Affect Medical Decision Making Data Points Result Diagram: 01/29/18 1614 01/29/18 1614 Item Value Date Time Calcium Level 9.4 mg/dl 01/29/18 1614 Total Bilirubin 0.5 mg/dl 01/29/18 1614 Aspartate Amino Transf (AST/SGOT) 29 U/L 01/29/18 1614 Alanine Aminotransferase (ALT/SGPT) 34 U/L 01/29/18 1614 Alkaline Phosphatase 92 U/L 01/29/18 1614 Total Protein 7.1 gm/dl 01/29/18 1614 Albumin 4.1 g/dl 01/29/18 1614 Lipase 73 U/L 01/29/18 1614 Urine Color Yellow 01/29/18 1746 Urine Clarity Clear 01/29/18 1746 Urine pH 5.0 pH 01/29/18 1746 Urine Specific [place] 1.027 01/29/18 1746 Urine Protein Negative mg/dL 01/29/18 1746 Urine Glucose (UA) Negative mg/dL 01/29/18 174 Urine Ketones Negative mg/dL 01/29/18 1746 Urine Blood Negative 01/29/18 1746 Urine Nitrite Negative 01/29/18 1746 Urine Bilirubin Negative 01/29/18 174 Urine Urobilinogen 2.0 mg/dL 01/29/18 1746 Urine Leukocyte Esterase Negative 01/29/18 1746 Urine RBC <1 /HPF 01/29/18 1746 Urine WBC 1 /HPF 01/29/18 1746 Urine Bacteria Negative /HPF 01/29/18 1746 Urine Squamous Epithelial Cells None /LPF 01/29/18 174 Urine Mucus None /HPF 01/29/18 1746 EKG / Imaging Imaging FACILITY: [facility] PATIENT NAME: Danielle Jaime : 1930 MR: [id number] V: [id number] EXAM DATE: [id number] ORDERING PHYSICIAN: HEVER MARTINEZ TECHNOLOGIST: Location: [facility] [place] Patient: Danielle Jaime : 1930 Visit/Account:[id number] Date of Sevice: 01/29/2018 EXAMINATION: CT of the right ankle HISTORY: Fracture. TECHNIQUE: Contiguous axial images were obtained through the right ankle without intravenous contrast administration. Coronal and sagittal reformatted images were obtained from the axial source data. One of the following dose optimization techniques was utilized in the performance of this exam: Automated exposure control; adjustment of the mA and/ or kV according to the patient's size; or use of an iterative reconstruction technique. Specific details can be referenced in the facility's radiology CT exam operational policy. COMPARISON: Right ankle radiographs dated 01/29/2018. FINDINGS: Bones: Mildly displaced trimalleolar fracture. Additional fractures of the anterior lateral corner of the tibial plafond with small fracture fragments in the joint space. Os trigonum. Small calcaneal bone spurs. Small accessory navicular bone. Joint spaces: Small fracture fragments in the anterior lateral mortise joint. Alignment: Normal. Soft tissues: Mild soft tissue swelling around the fractures. IMPRESSION: 1. Mildly displaced trimalleolar fracture. 2. Additional fracture of the anterior lateral corner of the tibial plafond with small fracture fragments in the joint space. Report Dictated By: Reji Moreno MD at 01/29/2018 8:15 PM Report E-Signed By: Reji Moreno MD at 01/29/2018 8:20 PM WSN:[id number] FACILITY: [facility] PATIENT NAME: Danielle Jaime : 1930 MR: [id number] V: [id number] EXAM DATE: [id number] ORDERING PHYSICIAN: HEVER MARTINEZ TECHNOLOGIST: Location: [facility] [place] Patient: Danielle Jaime : 1930 Visit/Account:[id number] Date of Sevice: 01/29/2018 Right ankle, 2 views. HISTORY: Postreduction. COMPARISON: Right ankle 01/29/2018 at 1017 hours. The ankle is somewhat rotated on the frontal view. Displacement of medial malleolus, posterior malleolus, and distal fibular fracture fragments has decreased compared to previous. The anterior aspect of the talotibial joint is no longer widened. Mild soft tissue swelling is present in the ankle. Fine detail is obscured by overlying casting material. IMPRESSION: Closed reduction of trimalleolar fracture. Report Dictated By: Alex Nunez MD at 01/29/2018 7:42 PM Report E-Signed By: Alex Nunez MD at 01/29/2018 7:45 PM WSN:[id number] FACILITY: [facility] PATIENT NAME: Danielle Jaime : 1930 MR: [id number] V: [id number] EXAM DATE: ORDERING PHYSICIAN: HEVER MARTINEZ TECHNOLOGIST: Location: [facility] [place] Patient: Danielle Jaime : 1930 Visit/Account:[id number] Date of Sevice: 01/29/2018 Right ankle, 2 views, and right tibia/fibula, 2 views. HISTORY: Fall, pain. Portions of the extremity are obscured by material outside of the patient. An oblique mildly comminuted fracture is present in the distal fibular diametaphysis resulting in moderate dorsal angulation and mild lateral displacement of the distal fragment. The ankle has a mild valgus alignment. An oblique comminuted fracture is present in the base of the medial malleolus resulting in 3-5 mm distraction of intra-articular fragments. The anterior aspect of the talotibial joint is markedly widened. A fracture may be present in the posterior malleolus although this area is partially obscured. Small spurs are present along the plantar and dorsal aspects the calcaneus. Mild soft tissue swelling is present in the ankle. Mild degenerative changes are present in the knee. The tibia and fibula are otherwise unremarkable. IMPRESSION: Ankle fracture dislocation. Report Dictated By: Alex Nunez MD at 01/29/2018 7:35 PM Report E-Signed By: Alex Nunez MD at 01/29/2018 7:39 PM WSN:[id number] FACILITY: [facility] PATIENT NAME: Danielle Jaime : 1930 MR: [id number] V: [id number] EXAM DATE: ORDERING PHYSICIAN: HEVER MARTINEZ TECHNOLOGIST: Location: [facility] [place] Patient: Danielle Jaime : 1930 Visit/Account:[id number] Date of Sevice: 01/29/2018 Right ankle, 2 views, and right tibia/fibula, 2 views. HISTORY: Fall, pain. Portions of the extremity are obscured by material outside of the patient. An oblique mildly comminuted fracture is present in the distal fibular diametaphysis resulting in moderate dorsal angulation and mild lateral displacement of the distal fragment. The ankle has a mild valgus alignment. An oblique comminuted fracture is present in the base of the medial malleolus resulting in 3-5 mm distraction of intra-articular fragments. The anterior aspect of the talotibial joint is markedly widened. A fracture may be present in the posterior malleolus although this area is partially obscured. Small spurs are present along the plantar and dorsal aspects the calcaneus. Mild soft tissue swelling is present in the ankle. Mild degenerative changes are present in the knee. The tibia and fibula are otherwise unremarkable. IMPRESSION: Ankle fracture dislocation. Report Dictated By: Alex Nunez MD at 01/29/2018 7:35 PM Report E-Signed By: Alex Nunez MD at 01/29/2018 7:39 PM WSN:[id number] Pre-Admit Course Medical Record Review: Yes Assessment and Plan Problems: (1) Trimalleolar fracture of right ankle Status: Acute Assessment & Plan: Ankle CT shows mildly displaced trimalleolar fracture and an additional fracture of the anterior lateral corner of the tibial plafond with small fracture fragments in the joint space. The patient has been splinted. Management per orthopedic surgery. Will place on Percocet for pain control. (2) COPD (chronic obstructive pulmonary disease) Status: Chronic Assessment & Plan: Preop CXR ordered. On oxygen at home continuously. (3) HTN (hypertension) Status: Chronic Assessment & Plan: On lisinopril 2.5mg daily. (4) Hyperlipidemia Status: Chronic Assessment & Plan: On simvastatin 40mg daily. (5) History of CVA (cerebrovascular accident) Status: Chronic Assessment & Plan: The patient uses a walker at home. She has very mild residual weakness in her R upper extremity. Balance is poor. (6) Family history of malignant hyperthermia Time Spent on Plan of Care: < 30 min Copies to: RADHA HANKS DO Venous Thromboembolism Antithrombotics Is Pt On Any Antithrombotics?: Yes (lovenox) Exam Sepsis Risk: No Definite Risk Problem Qualifiers (1) Trimalleolar fracture of right ankle: Encounter type: initial encounter Fracture type: closed Qualified Codes: S82.851A - Displaced trimalleolar fracture of right lower leg, initial encounter for closed fracture (2) HTN (hypertension): Hypertension type: essential hypertension Qualified Codes: I10 - Essential ( primary) hypertension MILAGROS DAVE MD Jan 29, 2018 22:26 <Electronically signed by MILAGROS DAVE MD> D/ 26 25 25 AARON/LOLA CC: RADHA HANKS DO Patient will be admitted to [facility] for ongoing rehabilitative therapy. KATIE DAVE MD Feb 01, 2018 18:41
[2018-02-01] MEDS: DOCUSATE SODIUM 100 MG CAP PO SCH (21:00)
[2018-02-01] MEDS: SIMVASTATIN 40 MG TAB PO SCH (21:05)
[2018-02-02] MEDS: LEVOTHYROXINE SOD 0.05 MG TAB PO SCH (06:26)
[2018-02-02 07:50] VITALS: BP 141/63
[2018-02-02] MEDS: POLYETHYLENE GLYCOL 17 GM PKT PO SCH (09:00)
[2018-02-02] MEDS: DOCUSATE SODIUM 100 MG CAP PO SCH ×2 (09:00→20:49)
[2018-02-02] MEDS: ENOXAPARIN 40 MG/0.4ML SYR SC SCH (09:30)
[2018-02-02] MEDS: SOLIFENACIN SUCCINATE 5 MG TAB PO SCH (09:30)
[2018-02-02] MEDS: GABAPENTIN 300 MG CAP PO SCH ×3 (09:30→20:49)
[2018-02-02] MEDS: LISINOPRIL 5 MG TAB PO SCH (09:31)
[2018-02-02 10:59] VITALS: Ht 162.6 cm; Wt 88.6 kg
[2018-02-02 17:22] VITALS: BP 127/67
[2018-02-02] MEDS: SIMVASTATIN 40 MG TAB PO SCH (20:49)
[2018-02-03] MEDS: LEVOTHYROXINE SOD 0.05 MG TAB PO SCH (05:22)
[2018-02-03 07:50] VITALS: BP 126/64
[2018-02-03] MEDS: DOCUSATE SODIUM 100 MG CAP PO SCH ×2 (08:52→21:29)
[2018-02-03] MEDS: ENOXAPARIN 40 MG/0.4ML SYR SC SCH (08:53)
[2018-02-03] MEDS: GABAPENTIN 300 MG CAP PO SCH ×3 (08:53→21:29)
[2018-02-03] MEDS: LISINOPRIL 5 MG TAB PO SCH (08:53)
[2018-02-03] MEDS: SOLIFENACIN SUCCINATE 5 MG TAB PO SCH (08:53)
[2018-02-03] MEDS: POLYETHYLENE GLYCOL 17 GM PKT PO SCH (08:54)
--- NOTE | 2018-02-03 10:08 | Medical Nutrition Therapy ---
Nutrition Anthropometrics Height (Inches): 64.00 Height (Calculated Centimeters: 162.389112 Weight (Pounds): 200 Weight (Calculated Kilograms): 90.718 BMI Calculated: 34.33 Driss Nutrition Score: Adequate Driss Nutrition Risk Score: 15 Dietary Referral Nutrition Risk Factors: Nutrition Risk Comment: Nutritional Diagnosis Nutritional Risk Acuity 3: Fair Appetite, Fx & > 80 yrs Past Medical History: Hysterectomy, Family history of malignant hyperthermia, Arthritis of back, COPD, Hypoxia, Cardiac murmur, HTN, CVA (cerebrovascular accident) Nutritional Acuity: 3-Mild Adjusted Energy Requirement Re: 1630 (H-B adj for obestiy x 1.2 SF) Protein Requirement: 90 (1gm/kg AW) Fluid Requirement: 2250 (25ml/kg) Diet Type: Diet as Tolerated RACHEL/REG Nutrition Intervention: Cont diet as ordered, Encourage intake, HS snack Nutrition Monitoring & Eval Nutrition Follow-Up: Fair Intake RD Patient Assessment Time: [address] Assessment Type: RD Assessment Patient Nutrition Acuity: 3-Mild Follow Up Date: Feb 11, 2018 Nutritional Comment: 02/03: Pt admitted post fall with ankle fx. Pt in on regular diet and eatng 50- 100% of meals. BMI is in class 2 obesity range. Will cont to monitor and encourage intake. MILTON NAIK Feb 03, 2018 10:08
[2018-02-03 16:45] VITALS: BP 130/67
[2018-02-03] MEDS: SIMVASTATIN 40 MG TAB PO SCH (21:29)
[2018-02-04] MEDS: LEVOTHYROXINE SOD 0.05 MG TAB PO SCH (05:29)
[2018-02-04 07:35] VITALS: BP 119/75
[2018-02-04] MEDS: POLYETHYLENE GLYCOL 17 GM PKT PO SCH (09:00)
[2018-02-04] MEDS: LISINOPRIL 5 MG TAB PO SCH (09:03)
[2018-02-04] MEDS: SOLIFENACIN SUCCINATE 5 MG TAB PO SCH (09:03)
[2018-02-04] MEDS: GABAPENTIN 300 MG CAP PO SCH ×3 (09:03→20:16)
[2018-02-04] MEDS: ENOXAPARIN 40 MG/0.4ML SYR SC SCH (09:03)
[2018-02-04] MEDS: DOCUSATE SODIUM 100 MG CAP PO SCH ×2 (09:03→20:16)
[2018-02-04 17:40] VITALS: BP 116/66
[2018-02-04] MEDS: SIMVASTATIN 40 MG TAB PO SCH (20:16)
[2018-02-05] MEDS: LEVOTHYROXINE SOD 0.05 MG TAB PO SCH (06:23)
[2018-02-05 08:05] VITALS: BP 129/71
[2018-02-05] MEDS: LISINOPRIL 5 MG TAB PO SCH (08:20)
[2018-02-05] MEDS: SOLIFENACIN SUCCINATE 5 MG TAB PO SCH (08:20)
[2018-02-05] MEDS: ENOXAPARIN 40 MG/0.4ML SYR SC SCH (08:20)
[2018-02-05] MEDS: GABAPENTIN 300 MG CAP PO SCH ×3 (08:20→21:17)
[2018-02-05] MEDS: DOCUSATE SODIUM 100 MG CAP PO SCH ×2 (08:21→21:17)
[2018-02-05] MEDS: POLYETHYLENE GLYCOL 17 GM PKT PO SCH (08:22)
[2018-02-05 15:30] VITALS: BP 118/70
[2018-02-05] MEDS: SIMVASTATIN 40 MG TAB PO SCH (21:17)
[2018-02-06] MEDS: LEVOTHYROXINE SOD 0.05 MG TAB PO SCH (05:21)
[2018-02-06 05:39] VITALS: BP 135/80
[2018-02-06] MEDS: POLYETHYLENE GLYCOL 17 GM PKT PO SCH (09:00)
[2018-02-06] MEDS: DOCUSATE SODIUM 100 MG CAP PO SCH ×2 (09:00→20:51)
[2018-02-06] MEDS: GABAPENTIN 300 MG CAP PO SCH ×3 (09:00→20:51)
[2018-02-06] MEDS: SOLIFENACIN SUCCINATE 5 MG TAB PO SCH (09:00)
[2018-02-06] MEDS: LISINOPRIL 5 MG TAB PO SCH (09:00)
[2018-02-06 10:45] VITALS: BP 141/66
[2018-02-06] MEDS ORDERED: NS(*) 0.9% 1000 ML BAG 1,000 ML IV PRN (11:40)
[2018-02-06] MEDS ORDERED: FLUSH 10 ML SYR IVP PRN (11:40)
[2018-02-06] MEDS ORDERED: BISACODYL 10 MG SUPP PR PRN (11:40)
[2018-02-06] MEDS ORDERED: ONDANSETRON 4 MG/2 ML VIAL IVP PRN (11:40)
[2018-02-06] MEDS ORDERED: MEPERIDINE 50 MG/ML SYR IVP PRN (11:40)
[2018-02-06] MEDS ORDERED: ZOLPIDEM TARTRATE 5 MG TAB PO PRN (11:40)
[2018-02-06] MEDS ORDERED: PROMETHAZINE 25 MG/ML 1 ML AMP IVP PRN (11:40)
[2018-02-06] MEDS ORDERED: MAGNESIUM HYDROXIDE* 30ML UDCP PO PRN (11:40)
--- NOTE | 2018-02-06 14:08 | Hospitalist Progress Note ---
Subjective Progress Notes Subjective She was admitted to [facility] after a fall at home. She fractured her right ankle. Today, the patient went to surgery for repair of her ankle. She is now complaining of pain at the surgical site. There were no known complications from surgery. Patient Complains of: Cardiovascular: No: Chest Pain Respiratory: No: Shortness of Breath Physical Exam Vital Signs Date Time Temp Pulse Resp B/P (MAP) Pulse Ox O2 Delivery O2 Flow Rate FiO2 02/06/18 10:45 97.7 69 20 141/66 (91) 95 Nasal Cannula 2.0 Intake and Output 02/07/18 07:00 # Voids 1 General Appearance: Alert, Awake, No Acute Distress, Afebrile Cardiovascular: Regular Rate and Rhythm Respiratory: No Respiratory Distress, Clear to Auscultation Extremities: Other (right ankle has bandage applied) Psych: Alert & Oriented X3, Appropriate Mood & Affect Assessment and Plan Problems: (1) Trimalleolar fracture of right ankle Status: Acute Assessment & Plan: Ankle CT shows mildly displaced trimalleolar fracture and an additional fracture of the anterior lateral corner of the tibial plafond with small fracture fragments in the joint space. The patient had her ankle repaired today by Dr. Tripathi. She will continue Percocet for pain, with Demerol for break through pain. (2) COPD (chronic obstructive pulmonary disease) Status: Chronic Assessment & Plan: She uses oxygen continuously. (3) HTN (hypertension) Status: Chronic Assessment & Plan: She is on Lisinopril 2.5mg daily. (4) Hyperlipidemia Status: Chronic Assessment & Plan: She is on Simvastatin 40mg daily. (5) History of CVA (cerebrovascular accident) Status: Chronic Assessment & Plan: She uses a walker at home. She has very mild residual weakness to her right upper extremity. Balance is poor. (6) Family history of malignant hyperthermia Problem Qualifiers (1) Trimalleolar fracture of right ankle: Encounter type: subsequent encounter Fracture type: closed Fracture healing : with routine healing Qualified Codes: S82.851D - Displaced trimalleolar fracture of right lower leg, subsequent encounter for closed fracture with routine healing (2) HTN (hypertension): Hypertension type: essential hypertension Qualified Codes: I10 - Essential ( primary) hypertension RIVAS BROWNP Feb 06, 2018 14:08
[2018-02-06 14:30] VITALS: BP 141/36
[2018-02-06] MEDS: ceFAZolin(*) 2GM/D5W 50ML 50 ML IVPB SCH ×2 (15:01→23:00)
[2018-02-06 16:10] VITALS: BP 124/71
[2018-02-06] MEDS: SIMVASTATIN 40 MG TAB PO SCH (20:51)
[2018-02-07] MEDS: LEVOTHYROXINE SOD 0.05 MG TAB PO SCH (06:25)
[2018-02-07] MEDS: ceFAZolin(*) 2GM/D5W 50ML 50 ML IVPB SCH (06:27)
[2018-02-07 08:00] VITALS: BP 112/64
[2018-02-07] MEDS ORDERED: KETOROLAC 30 MG/ML VIAL IVP ONE (08:00)
[2018-02-07] MEDS: GABAPENTIN 300 MG CAP PO SCH ×3 (10:00→20:49)
[2018-02-07] MEDS: SOLIFENACIN SUCCINATE 5 MG TAB PO SCH (10:01)
[2018-02-07] MEDS: DOCUSATE SODIUM 100 MG CAP PO SCH ×2 (10:01→20:49)
[2018-02-07] MEDS: LISINOPRIL 5 MG TAB PO SCH (10:02)
[2018-02-07] MEDS: POLYETHYLENE GLYCOL 17 GM PKT PO SCH (10:03)
[2018-02-07 17:00] VITALS: BP 122/72
[2018-02-07] MEDS: SIMVASTATIN 40 MG TAB PO SCH (20:49)
[2018-02-08] MEDS: LEVOTHYROXINE SOD 0.05 MG TAB PO SCH (05:54)
[2018-02-08 08:00] VITALS: BP 139/73
[2018-02-08] MEDS: POLYETHYLENE GLYCOL 17 GM PKT PO SCH (08:35)
[2018-02-08] MEDS: SOLIFENACIN SUCCINATE 5 MG TAB PO SCH (08:36)
[2018-02-08] MEDS: DOCUSATE SODIUM 100 MG CAP PO SCH ×2 (08:36→20:30)
[2018-02-08] MEDS: GABAPENTIN 300 MG CAP PO SCH ×3 (08:36→20:30)
[2018-02-08] MEDS: LISINOPRIL 5 MG TAB PO SCH (08:36)
[2018-02-08] MEDS: LEVALBUTEROL 1.25 MG/3 ML NEB NEB PRN ×2 (12:58→15:54)
[2018-02-08 15:56] VITALS: BP 134/71
[2018-02-08] MEDS: SIMVASTATIN 40 MG TAB PO SCH (20:30)
[2018-02-09] MEDS: LEVOTHYROXINE SOD 0.05 MG TAB PO SCH (05:59)
[2018-02-09 08:00] VITALS: BP 139/65
[2018-02-09] MEDS: GABAPENTIN 300 MG CAP PO SCH ×3 (09:17→21:15)
[2018-02-09] MEDS: LISINOPRIL 5 MG TAB PO SCH (09:17)
[2018-02-09] MEDS: DOCUSATE SODIUM 100 MG CAP PO SCH ×2 (09:17→21:15)
[2018-02-09] MEDS: POLYETHYLENE GLYCOL 17 GM PKT PO SCH (09:17)
[2018-02-09] MEDS: SOLIFENACIN SUCCINATE 5 MG TAB PO SCH (09:17)
[2018-02-09] MEDS: LEVALBUTEROL 1.25 MG/3 ML NEB NEB PRN ×2 (10:07→15:09)
[2018-02-09 17:00] VITALS: BP 163/81
[2018-02-09] MEDS: SIMVASTATIN 40 MG TAB PO SCH (21:15)
[2018-02-10] MEDS: LEVOTHYROXINE SOD 0.05 MG TAB PO SCH (06:18)
[2018-02-10 08:15] VITALS: BP 156/72
[2018-02-10] MEDS: LISINOPRIL 5 MG TAB PO SCH (08:15)
[2018-02-10] MEDS: SOLIFENACIN SUCCINATE 5 MG TAB PO SCH (08:15)
[2018-02-10] MEDS: POLYETHYLENE GLYCOL 17 GM PKT PO SCH (08:15)
[2018-02-10] MEDS: GABAPENTIN 300 MG CAP PO SCH ×3 (08:16→20:34)
[2018-02-10] MEDS: DOCUSATE SODIUM 100 MG CAP PO SCH ×2 (08:16→20:34)
[2018-02-10 17:10] VITALS: BP 111/60
[2018-02-10] MEDS: LEVALBUTEROL 1.25 MG/3 ML NEB NEB PRN (19:27)
[2018-02-10] MEDS: SIMVASTATIN 40 MG TAB PO SCH (20:34)
[2018-02-11] MEDS: LEVOTHYROXINE SOD 0.05 MG TAB PO SCH (05:39)
[2018-02-11 07:22] VITALS: BP 146/63
[2018-02-11] MEDS: GABAPENTIN 300 MG CAP PO SCH ×3 (08:23→20:46)
[2018-02-11] MEDS: POLYETHYLENE GLYCOL 17 GM PKT PO SCH (08:23)
[2018-02-11] MEDS: LISINOPRIL 5 MG TAB PO SCH (08:23)
[2018-02-11] MEDS: SOLIFENACIN SUCCINATE 5 MG TAB PO SCH (08:23)
[2018-02-11] MEDS: DOCUSATE SODIUM 100 MG CAP PO SCH ×2 (08:23→20:46)
[2018-02-11] MEDS: LEVALBUTEROL 1.25 MG/3 ML NEB NEB PRN (10:17)
--- NOTE | 2018-02-11 15:02 | Medical Nutrition Therapy ---
Nutrition Anthropometrics Height (Inches): 64.00 Height (Calculated Centimeters: 162.562094 Weight (Pounds): 203 Weight (Calculated Kilograms): 92.079 BMI Calculated: 34.33 Driss Nutrition Score: Adequate Driss Nutrition Risk Score: 16 Dietary Referral Nutrition Risk Factors: Nutrition Risk Comment: Physical Findings Physical Appearance: Obese BMI 30-39 Skin Appearance Skin Appearance: Edema Edema Location Modifier: Right Edema Location: Lower Extremity Type of Edema: Degree of Edema: Gastrointestinal Symptoms GI Symtoms: Tube Present: Bowel Sounds: Recent Bowel Pattern: Stool Characteristics: Nutritional Diagnosis Nutritional Risk Acuity 3: Fair Appetite, Fx & > 80 yrs Past Medical History: Hysterectomy, Family history of malignant hyperthermia, Arthritis of back, COPD, Hypoxia, Cardiac murmur, HTN, CVA (cerebrovascular accident) Nutritional Acuity: 3-Mild Adjusted Energy Requirement Re: 1630 (H-B adj for obestiy x 1.2 SF) Protein Requirement: 90 (1gm/kg AW) Fluid Requirement: 2250 (25ml/kg) Diet Type: Diet as Tolerated RACHEL/REG Nutrition Intervention: Cont diet as ordered, Encourage intake, HS snack Nutrition Monitoring & Eval Nutrition Goals: Eat 75-100% Meal Nutrition Follow-Up: Fair Intake RD Patient Assessment Time: [address] Assessment Type: RD Re-Assessment Patient Nutrition Acuity: 3-Mild Follow Up Date: Feb 19, 2018 Nutritional Comment: 02/03: Pt admitted post fall with ankle fx. Pt in on regular diet and eatng 50- 100% of meals. BMI is in class 2 obesity range. Will cont to monitor and encourage intake. 02/11. Pt cont on RACHEL. Eating 63% of meals. Wt up 3#. No new labs. Will cont to monitor and encourage intake. MILTON NAIK Feb 11, 2018 15:02
[2018-02-11 17:05] VITALS: BP 135/66
[2018-02-11] MEDS: SIMVASTATIN 40 MG TAB PO SCH (20:46)
[2018-02-12] MEDS: LEVALBUTEROL 1.25 MG/3 ML NEB NEB PRN ×2 (04:41→09:17)
[2018-02-12] MEDS: LEVOTHYROXINE SOD 0.05 MG TAB PO SCH (05:29)
[2018-02-12 08:20] VITALS: BP 106/51
[2018-02-12] MEDS: POLYETHYLENE GLYCOL 17 GM PKT PO SCH (09:00)
[2018-02-12] MEDS: DOCUSATE SODIUM 100 MG CAP PO SCH ×2 (09:00→21:00)
[2018-02-12] MEDS: LISINOPRIL 5 MG TAB PO SCH (09:51)
[2018-02-12] MEDS: GABAPENTIN 300 MG CAP PO SCH ×3 (09:51→21:24)
[2018-02-12] MEDS: SOLIFENACIN SUCCINATE 5 MG TAB PO SCH (09:51)
[2018-02-12] MEDS: guaiFENesin SYRP 100MG/5ML UDC PO SCH ×2 (12:06→16:51)
[2018-02-12 16:15] VITALS: BP 122/68
[2018-02-12] MEDS: SIMVASTATIN 40 MG TAB PO SCH (21:24)
[2018-02-13] MEDS: guaiFENesin SYRP 100MG/5ML UDC PO SCH ×3 (01:22→17:02)
[2018-02-13] MEDS: LEVOTHYROXINE SOD 0.05 MG TAB PO SCH (06:07)
[2018-02-13 08:05] VITALS: BP 120/47
[2018-02-13] MEDS: POLYETHYLENE GLYCOL 17 GM PKT PO SCH ×2 (09:00→09:22)
[2018-02-13] MEDS: DOCUSATE SODIUM 100 MG CAP PO SCH ×2 (09:23→20:57)
[2018-02-13] MEDS: GABAPENTIN 300 MG CAP PO SCH ×3 (09:23→20:57)
[2018-02-13] MEDS: SOLIFENACIN SUCCINATE 5 MG TAB PO SCH (09:23)
[2018-02-13] MEDS: LISINOPRIL 5 MG TAB PO SCH (09:23)
[2018-02-13] MEDS ORDERED: LEVALBUTEROL 1.25 MG/3 ML NEB NEB PRN (10:45)
--- NOTE | 2018-02-13 10:50 | Hospitalist Progress Note ---
Subjective Progress Notes Subjective The patient complains of cough. Productive at times. No fever. No increased oxygen requirement. Physical Exam Vital Signs Date Time Temp Pulse Resp B/P (MAP) Pulse Ox O2 Delivery O2 Flow Rate FiO2 02/13/18 02:25 Nasal Cannula 2.0 02/12/18 16:15 97.4 67 20 122/68 (86) 94 Intake and Output 02/14/18 07:00 Intake Total 240 ml Balance 240 ml Intake Oral 240 ml General Appearance: Alert, Awake, No Acute Distress, Afebrile Neuro: No Gross deficits Eyes: PERRLA Cardiovascular: Regular Rate and Rhythm Respiratory: Other (Scattered wheezes. Very few fine crackles L base.) GI: Soft and Non-Tender Extremities: Warm, Perfused Psych: Appropriate Mood & Affect Assessment and Plan Problems: (1) Viral respiratory illness Status: Acute Assessment & Plan: The patient appears to have a viral respiratory infection. Will schedule her Xopenex nebs for the next few days. Watch for fever or increased O2 requirements. (2) Trimalleolar fracture of right ankle Status: Acute Assessment & Plan: Ankle CT showed mildly displaced trimalleolar fracture and an additional fracture of the anterior lateral corner of the tibial plafond with small fracture fragments in the joint space. The patient had her ankle repaired by Dr. Tripathi. She will continue Percocet for pain, with Demerol for break through pain. She is working with PT and OT. (3) COPD (chronic obstructive pulmonary disease) Status: Chronic Assessment & Plan: She uses oxygen continuously. (4) HTN (hypertension) Status: Chronic Assessment & Plan: She is on Lisinopril 2.5mg daily. (5) Hyperlipidemia Status: Chronic Assessment & Plan: She is on Simvastatin 40mg daily. (6) History of CVA (cerebrovascular accident) Status: Chronic Assessment & Plan: She uses a walker at home. She has very mild residual weakness to her right upper extremity. Balance is poor. (7) Family history of malignant hyperthermia Time Spent on Plan of Care: < 30 min Problem Qualifiers (1) Trimalleolar fracture of right ankle: Encounter type: subsequent encounter Fracture type: closed Fracture healing : with routine healing Qualified Codes: S82.851D - Displaced trimalleolar fracture of right lower leg, subsequent encounter for closed fracture with routine healing (2) HTN (hypertension): Hypertension type: essential hypertension Qualified Codes: I10 - Essential ( primary) hypertension MILAGROS DAVE MD Feb 13, 2018 10:50
[2018-02-13] MEDS ORDERED: LOPERAMIDE HCL 2 MG CAP PO PRN (12:25)
[2018-02-13 16:10] VITALS: BP_SYST 130; BP_SYST 142; BP_DIAS 77
[2018-02-13] MEDS: LEVALBUTEROL 1.25 MG/3 ML NEB NEB SCH (17:28)
[2018-02-13] MEDS: SIMVASTATIN 40 MG TAB PO SCH (20:57)
[2018-02-14] MEDS: guaiFENesin SYRP 100MG/5ML UDC PO SCH ×2 (01:22→09:50)
[2018-02-14] MEDS: LEVOTHYROXINE SOD 0.05 MG TAB PO SCH (05:20)
[2018-02-14] MEDS: LEVALBUTEROL 1.25 MG/3 ML NEB NEB SCH ×3 (05:48→17:14)
[2018-02-14 06:24] LABS: PLATELET COUNT, AUTOMATED 234 K/uL (150-450)
[2018-02-14 08:00] VITALS: BP 133/50
[2018-02-14] MEDS: DOCUSATE SODIUM 100 MG CAP PO SCH ×3 (09:00→21:00)
[2018-02-14] MEDS: POLYETHYLENE GLYCOL 17 GM PKT PO SCH (09:00)
[2018-02-14] MEDS: GABAPENTIN 300 MG CAP PO SCH ×3 (09:50→20:43)
[2018-02-14] MEDS: LISINOPRIL 5 MG TAB PO SCH (09:51)
[2018-02-14] MEDS: SOLIFENACIN SUCCINATE 5 MG TAB PO SCH (09:51)
[2018-02-14 16:05] VITALS: BP 130/80
[2018-02-14] MEDS: GUAIFENESIN PO SCH (17:22)
[2018-02-14] MEDS: SIMVASTATIN 40 MG TAB PO SCH (20:43)
[2018-02-15] MEDS: GUAIFENESIN PO SCH (01:28)
[2018-02-15] MEDS: LEVOTHYROXINE SOD 0.05 MG TAB PO SCH (05:25)
[2018-02-15] MEDS: LEVALBUTEROL 1.25 MG/3 ML NEB NEB SCH ×3 (06:11→17:09)
[2018-02-15 07:30] VITALS: BP 133/83
[2018-02-15] MEDS ORDERED: guaiFENesin SYRP 100MG/5ML UDC PO PRN (09:00)
[2018-02-15] MEDS: POLYETHYLENE GLYCOL 17 GM PKT PO SCH (09:00)
[2018-02-15] MEDS: DOCUSATE SODIUM 100 MG CAP PO SCH ×2 (09:18→20:58)
[2018-02-15] MEDS: LISINOPRIL 5 MG TAB PO SCH (09:18)
[2018-02-15] MEDS: GABAPENTIN 300 MG CAP PO SCH ×3 (09:18→20:58)
[2018-02-15] MEDS: SOLIFENACIN SUCCINATE 5 MG TAB PO SCH (09:18)
--- NOTE | 2018-02-15 12:52 | OT ECF NOTE ---
Type of Note: 2-week progress note Primary Medical Diagnosis: Right trimalleolar fracture of ankle (pt. is NON WEIGHT BEARING) Occupational Therapy Evaluation Date: 02-01-18 SUBJECTIVE: Prior Hospitalization: On med/ surgical floor from 01/29/18 to 02/01/18. Prior Level of Function: Independent with all ADL's and laundry activities. Prior Living Status: Mobile home, Assist by family, Lives with grandson Community Services: No known needs Home Accessibility: Stairs with rails (family installing a ramp) Tub/shower combination-Pt recognizes that she will not be able to access shower due to narrow hallways and recommendation to not ambulate while she is NWB. Pt reports her family is able to set her up with bed baths. Equipment Owned: Front wheeled walker List provided to daughter on 02/12/18 to include hospital bed, bedside commode, wheelchair, parts administrator, and toilet aide. Daughter is working on obtaining equipment this week. Medical Complications/Past Medical History: Please refer to chart for details. Psychosocial Support: Very supportive family. Pain Scale (0-10): 3/10 during tx OBJECTIVE: Strength: MMT: Right Left Shoulder Flexion WFL WFL Elbow Flexion WFL WFL Wrist Extension WFL WFL Blower Blast Furnace WFL WFL (5= normal, 4= good, 3= fair, 2= poor, 1= trace) ROM: WFL Functional Transfer: Assistive Device: None (squat pivot transfers) Transfer Ability: CGA-Occasional Min-Mod A to maintain NWB R LE ADL: Upper body dressing: Assistive device: None Upper body dressing ability: Set-up Lower body dressing: Assistive device: Hadoop Java Developer Lower body dressing ability: Minimum assistance Toileting: Assistive device: Bedside commode-Educated provided for toileting aides and where to obtain Toileting ability: Minimum assistance Grooming/hygiene: Seated Assistive device: None Grooming ability: Set-up Bathing: Assistive device: Bathing ability: N/T Standardized Assessment: Penny Index of Activities of Daily Living- Pt. scored 8/20 on this index on evaluation. Pt scored a 11/20 at 4-[id number]-[id number] note (02/15/18). ASSESSMENT: Pt. is an 87 year old woman who fell at home while taking clothes out of her dryer. Pt. resides in [place] in a mobile home with her grandson, with 4 stairs to access home and no stairs within. Pt. has a tub/shower combination and only owns an walker. Pt.'s grandson completed all the cooking, cleaning and grocery shopping. Pt. 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 Pt. has been progressing towards OT goals and will continue to benefit from OT services 5 x/week to address independence with ADL, transfers and DME acquisition. Problem List/Current Limitations: Pain Decreased WB Decreased activity areli Decreased sensation Decreased coordination Short Term Goals: 1. Pt. to perform toileting activities with Mod A.GOAL MET NEW GOAL: Pt will be SBA toileting activities. 2. Pt. to perform showering activities with Mod A. NOT MET. 3. Pt. to perform g/h activities with [place]. GOAL MET. 4. Pt. to perform dressing activities with Mod A. GOAL MET NEW GOAL: Pt will be Mod (I) UB/LB dressing with adaptive methods. 5. Pt. to increase Penny Index Score by 2 points. GOAL MET. NEW GOAL: Pt will be (I) self-propulsion with wheelchair. Warehouse Associate Goals: return home with assist from family and services. Patient Goals: return home with assist from family . Rehabilitation Prognosis: Fair Barriers to Discharge: NWB R LE and will have a living room set-up PLAN: The patient will benefit from skilled occupational therapy services 5 times per week for 2 weeks including: Ther ex ADL training Safety training Ther act IADL training Transfer training Adaptive equip training Bed mobility Thank you for this referral. If you have any questions, concerns, or comments about this report or plan, please contact me at . Danielle Pacheco MS, OTR/L Occupational Therapist DOMINIC
[2018-02-15] MEDS: GUAIFENESIN PO PRN (13:25)
[2018-02-15 16:20] VITALS: BP 125/72
[2018-02-15] MEDS: SIMVASTATIN 40 MG TAB PO SCH (20:58)
[2018-02-16] MEDS: LEVOTHYROXINE SOD 0.05 MG TAB PO SCH (05:19)
[2018-02-16] MEDS: LEVALBUTEROL 1.25 MG/3 ML NEB NEB SCH ×3 (05:24→17:06)
[2018-02-16 08:25] VITALS: BP 119/30
[2018-02-16] MEDS: DOCUSATE SODIUM 100 MG CAP PO SCH ×2 (09:33→20:16)
[2018-02-16] MEDS: POLYETHYLENE GLYCOL 17 GM PKT PO SCH (09:33)
[2018-02-16] MEDS: GABAPENTIN 300 MG CAP PO SCH ×3 (09:33→20:16)
[2018-02-16] MEDS: SOLIFENACIN SUCCINATE 5 MG TAB PO SCH (09:34)
[2018-02-16] MEDS: LISINOPRIL 5 MG TAB PO SCH (09:34)
[2018-02-16 15:42] VITALS: BP 135/65
[2018-02-16] MEDS: SIMVASTATIN 40 MG TAB PO SCH (20:16)
[2018-02-17] MEDS: LEVALBUTEROL 1.25 MG/3 ML NEB NEB SCH ×3 (05:25→17:06)
[2018-02-17] MEDS: LEVOTHYROXINE SOD 0.05 MG TAB PO SCH (05:37)
[2018-02-17 07:40] VITALS: BP 127/66
[2018-02-17] MEDS: DOCUSATE SODIUM 100 MG CAP PO SCH ×2 (08:52→20:19)
[2018-02-17] MEDS: LISINOPRIL 5 MG TAB PO SCH (08:53)
[2018-02-17] MEDS: GABAPENTIN 300 MG CAP PO SCH ×3 (08:53→20:19)
[2018-02-17] MEDS: POLYETHYLENE GLYCOL 17 GM PKT PO SCH (08:54)
[2018-02-17] MEDS: SOLIFENACIN SUCCINATE 5 MG TAB PO SCH (10:02)
[2018-02-17 15:30] VITALS: BP 82/52
[2018-02-17 16:05] VITALS: BP 110/72
[2018-02-17] MEDS: GUAIFENESIN PO PRN (19:45)
[2018-02-17] MEDS: SIMVASTATIN 40 MG TAB PO SCH (20:19)
[2018-02-18] MEDS: LEVALBUTEROL 1.25 MG/3 ML NEB NEB SCH ×3 (05:18→17:27)
[2018-02-18] MEDS: LEVOTHYROXINE SOD 0.05 MG TAB PO SCH (05:32)
[2018-02-18 07:45] VITALS: BP 115/46
[2018-02-18] MEDS: LISINOPRIL 5 MG TAB PO SCH (08:39)
[2018-02-18] MEDS: GABAPENTIN 300 MG CAP PO SCH ×3 (08:39→20:51)
[2018-02-18] MEDS: SOLIFENACIN SUCCINATE 5 MG TAB PO SCH (08:39)
[2018-02-18] MEDS: DOCUSATE SODIUM 100 MG CAP PO SCH ×2 (08:39→20:51)
[2018-02-18] MEDS: POLYETHYLENE GLYCOL 17 GM PKT PO SCH (08:40)
--- NOTE | 2018-02-18 15:39 | PT ECF NOTE ---
Type of Note: Progress Note Primary Medical Diagnosis: Trimalleolar fracture of the R) ankle, *NWB Physical Therapy Evaluation Date: 02/01/18 Physical Therapy Progress Note Date: 02/18/18 SUBJECTIVE: Prior Hospitalization: [facility] 01/29/18-02/01/18 Prior Level of Function: Tommy with RW, pt reports falls at home Prior Living Status: Mobile home, Living with grandson Community Services: No known needs Home Accessibility: 4 stairs with rails Equipment Owned: Front wheeled walker Medical Complications/Past Medical History: See EMR Psychosocial Support: Pt lives with grandson, daughter lives in town Pain Scale (0-10): 04/28 OBJECTIVE: Strength: Right Lower Extremity: DF: NT, splint in place Knee flexion: 4/5 Knee extension: 4/5 Hip flexion: 3+/5 Left Lower Extremity: DF: 4/5 Knee flexion: 4/5 Knee extension: 4/5 Hip flexion: 4/5 ROM: (please note any abnormalities) R) ankle in splint Sensation: (please note any abnormalities) WNL Other Neuro findings: None noted Bed Mobility: Tommy Transfers: SBA squat pivot to/from w/c and BSC Gait: Pt unable Stairs: Pt unable Timed Up and Go (>12 seconds indicated increased risk for falls): Pt unable ASSESSMENT: Danielle has made good progress towards functional goals and is demonstrating increased consistency with squat pivot transfers with adherence to weightbearing restrictions. She will benefit from further skilled PT in order to ensure safe d/c home with all appropriate equipment in place. Problem List/Current Limitations: Pain Decreased WB Decreased activity areli Decreased strength Decreased ROM Decreased balance Short Term Goals: 1: Pt to complete bed mobility with SBA 2: Pt to complete stand pivot transfers with RW, to/from W/C with SBA 3: Pt and pt's family to receive education regarding appropriate techniques to access home environment with 4 stairs. 4: Pt to complete w/c mobility x150' with turns and SBA [facility] Goals: Pt to discharge to safest discharge location with increased independence and decreased risk of falls Patient Goals: Pt plans to d/c home Rehabilitation Prognosis: Fair Barriers for Discharge: NWB status of R) LE, home accessibility PLAN: The patient will benefit from skilled physical therapy services 5 times per week for 2 weeks including: Therapeutic Exercise Therapeutic Activities Transfer Training Gait Training Stair Training Manual Therapy Safety Training Neuromuscular Re-educ. Pt/Caregiver Training Bed Mobility Thank you for this referral. If you have any questions, concerns, or comments about this report or plan, please contact me at . Regla Baca, PT, DPT [facility]
[2018-02-18 16:42] VITALS: BP 115/64
[2018-02-18] MEDS: SIMVASTATIN 40 MG TAB PO SCH (20:51)
[2018-02-19] MEDS: LEVOTHYROXINE SOD 0.05 MG TAB PO SCH (05:16)
[2018-02-19] MEDS: LEVALBUTEROL 1.25 MG/3 ML NEB NEB SCH ×3 (05:50→16:56)
[2018-02-19 08:00] VITALS: BP 100/55
[2018-02-19] MEDS: DOCUSATE SODIUM 100 MG CAP PO SCH ×2 (09:00→21:00)
[2018-02-19] MEDS: POLYETHYLENE GLYCOL 17 GM PKT PO SCH (09:00)
--- NOTE | 2018-02-19 09:01 | Medical Nutrition Therapy ---
Nutrition Anthropometrics Height (Inches): 64.00 Height (Calculated Centimeters: 162.251880 Weight (Pounds): 195 Weight (Calculated Kilograms): 88.621 BMI Calculated: 34.33 Driss Nutrition Score: Adequate Driss Nutrition Risk Score: 17 Dietary Referral Nutrition Risk Factors: Nutrition Risk Comment: Physical Findings Physical Appearance: Obese BMI 30-39 Skin Appearance Skin Appearance: Edema Edema Location Modifier: Right Edema Location: Lower Extremity Type of Edema: Degree of Edema: Gastrointestinal Symptoms GI Symtoms: Tube Present: Bowel Sounds: Recent Bowel Pattern: Stool Characteristics: Nutritional Diagnosis Nutritional Risk Acuity 3: Fair Appetite, Fx & > 80 yrs Past Medical History: Hysterectomy, Family history of malignant hyperthermia, Arthritis of back, COPD, Hypoxia, Cardiac murmur, HTN, CVA (cerebrovascular accident) Nutritional Acuity: 3-Mild Adjusted Energy Requirement Re: 1630 (H-B adj for obestiy x 1.2 SF) Protein Requirement: 90 (1gm/kg AW) Fluid Requirement: 2250 (25ml/kg) Diet Type: Diet as Tolerated RACHEL/REG Nutrition Intervention: Cont diet as ordered, Encourage intake, HS snack Nutrition Monitoring & Eval Nutrition Goals: Eat 75-100% Meal Nutrition Follow-Up: Fair Intake RD Patient Assessment Time: [address] Assessment Type: RD Re-Assessment Patient Nutrition Acuity: 3-Mild Follow Up Date: Feb 26, 2018 Nutritional Comment: 02/03: Pt admitted post fall with ankle fx. Pt in on regular diet and eatng 50- 100% of meals. BMI is in class 2 obesity range. Will cont to monitor and encourage intake. 02/11. Pt cont on RACHEL. Eating 63% of meals. Wt up 3#. No new labs. Will cont to monitor and encourage intake. / Pt cont on RACHEL. Eaign 73% of small protions. Wt is down 3.9%. BMI cont in class 1 obesity range. Slow wt loss is acceptable. Will cont to monitor and encourage intake. MILTON NAIK Feb 19, 2018 09:01
[2018-02-19] MEDS: GABAPENTIN 300 MG CAP PO SCH ×3 (09:35→20:28)
[2018-02-19] MEDS: SOLIFENACIN SUCCINATE 5 MG TAB PO SCH (09:36)
[2018-02-19] MEDS: LISINOPRIL 5 MG TAB PO SCH (09:36)
[2018-02-19 15:40] VITALS: BP 144/67
[2018-02-19] MEDS: SIMVASTATIN 40 MG TAB PO SCH (20:28)
[2018-02-20] MEDS: LEVALBUTEROL 1.25 MG/3 ML NEB NEB PRN (05:40)
[2018-02-20] MEDS: LEVALBUTEROL 1.25 MG/3 ML NEB NEB SCH ×3 (05:42→17:06)
[2018-02-20] MEDS: LEVOTHYROXINE SOD 0.05 MG TAB PO SCH (05:57)
[2018-02-20 07:20] VITALS: BP 104/56
[2018-02-20] MEDS: POLYETHYLENE GLYCOL 17 GM PKT PO SCH (08:41)
[2018-02-20] MEDS: DOCUSATE SODIUM 100 MG CAP PO SCH ×2 (08:42→20:07)
[2018-02-20] MEDS: SOLIFENACIN SUCCINATE 5 MG TAB PO SCH (08:42)
[2018-02-20] MEDS: LISINOPRIL 5 MG TAB PO SCH (08:42)
[2018-02-20] MEDS: GABAPENTIN 300 MG CAP PO SCH ×3 (08:42→20:07)
--- NOTE | 2018-02-20 14:12 | Hospitalist Depart ---
Discharge Summary Reason for Hosp/Final Diag: (1) Viral respiratory illness Status: Acute Hospital Course & Plan: The patient appeared to have a viral respiratory infection during her stay on ECF. She was treated with scheduled Xopenex nebs. Her O2 requirements remained stable. She did not have elevated temperature or WBC. (2) Trimalleolar fracture of right ankle Status: Acute Hospital Course & Plan: Ankle CT showed mildly displaced trimalleolar fracture and an additional fracture of the anterior lateral corner of the tibial plafond with small fracture fragments in the joint space. The patient had her ankle repaired by Dr. Lopez. She was placed on Percocet for pain. She worked with PT and OT. She will continue PT though Home Health after discharge. (3) COPD (chronic obstructive pulmonary disease) Status: Chronic Hospital Course & Plan: She patient was continued on oxygen continuously. She was started on Xopenex nebulizer treatments tid with good improvement in her symptoms. This will be continued at discharge. (4) HTN (hypertension) Status: Chronic Hospital Course & Plan: She was continued on Lisinopril 2.5mg daily. (5) Hyperlipidemia Status: Chronic Hospital Course & Plan: She was continued on Simvastatin 40mg daily. (6) History of CVA (cerebrovascular accident) Status: Chronic Hospital Course & Plan: She uses a walker at home. She has very mild residual weakness to her right upper extremity. Balance is poor. She will continue PT at home with Home Health after discharge. (7) Family history of malignant hyperthermia Departure Weight (Pounds): 195 Weight (Ounces): 6.0 Result Diagram: 02/14/1860502/14/18605 Condition: Improved Discharge: Home, Home Health PT/OT Follow Up For: PT For Surgical Rehab Home Health USER INTERFACE DEVELOPER Follow Up For: ADL Assistance Time Spent: < 30 min Discharge Instructions Home Meds Active Scripts Levalbuterol Hcl (LEVALBUTEROL HCL) 1.25 Mg/3 Ml Vial.neb, 1.25 MG NEB TIDR, #1 BOX 3 Refills Prov:MILAGROS DAVE MD 02/20/18 Docusate Sodium (DOCUSATE SODIUM) 100 Mg Capsule, 100 MG PO BID, #60 CAPSULE Prov:MILAGROS DAVE MD 02/20/18 Reported Medications Solifenacin Succinate (VESICARE) 5 Mg Tablet, 5 MG PO DAILY 01/29/18 Gabapentin (GABAPENTIN) 300 Mg Capsule, 300 MG PO TID, CAPSULE 01/29/18 Levothyroxine Sodium (LEVOTHYROXINE SODIUM) 50 Mcg Tablet, 50 MCG PO QDAY, TAB 01/29/18 Oxycodone Hcl/Acetaminophen (OXYCODONE-ACETAMINOPHEN 10-325) 1 Each Tablet, 1 TAB PO QID Y for PAIN 01/29/18 Lisinopril (LISINOPRIL) 2.5 Mg Tablet, 2.5 MG PO QDAY 01/29/18 Simvastatin (SIMVASTATIN) 40 Mg Tablet, 40 MG PO HS, TAB 01/29/18 Aspirin (Childrens Chewable Aspirin) 81 Mg Chew, 81 MG PO QDAY 09/08/10 Follow up Referrals: Family Practice - In One Week with Adrien Hanks Do Diet: Regular Activity: As Tolerated Copies to: SHAHNAZ LOPEZ MD; ADRIEN HANKS DO Venous Thromboembolism VTE Risk Physician Assess for VTE Risk: Yes Patient's VTE Risk: Low VTE Diagnostic Test 2 Days Prior to Admit: No Antithrombotics Is Pt On Any Antithrombotics?: No (Will start ASA at discharge.) [id number] Certification Face to Face Home Health Certification Institutional Provider conducted the [id number] encounter. Electronic Undersigning Physician Certifies Home Health. I certify that the patient has been under my care and that I had a [id number] encounter that meets the physician [id number] encounter requirements with this patient. This patient is home-bound due to safety issues and continues to require assistance with ADL's. I certify that based on my findings, that Nursing, Aides and the following Home Health services are medically necessary: PT Medical Necessity: Nursing, Rehab Date Face to Face Conducted: Feb 20, 2018 Problem Qualifiers (1) Trimalleolar fracture of right ankle: Encounter type: subsequent encounter Fracture type: closed Fracture healing : with routine healing Qualified Codes: S82.851D - Displaced trimalleolar fracture of right lower leg, subsequent encounter for closed fracture with routine healing (2) HTN (hypertension): Hypertension type: essential hypertension Qualified Codes: I10 - Essential ( primary) hypertension MILAGROS DAVE MD Feb 20, 2018 14:12
[2018-02-20] MEDS ORDERED: DOCU-202 PO (14:37)
[2018-02-20] MEDS ORDERED: LEVA1.2513 NEB (14:44)
--- NOTE | 2018-02-20 14:56 | Hospitalist Progress Note ---
Subjective Progress Notes Subjective The patient denies new complaint. Physical Exam Vital Signs Date Time Temp Pulse Resp B/P (MAP) Pulse Ox O2 Delivery O2 Flow Rate FiO2 02/20/18 13:10 86 Room Air 02/20/18 11:08 78 16 02/20/18 11:03 2.0 02/20/18 07:20 97.7 104/56 (72) Intake and Output 02/21/18 07:00 Intake Total 840 ml Balance 840 ml Intake Oral 840 ml # Voids 3 # Bowel Movements 1 General Appearance: Alert, Awake, No Acute Distress Neuro: No Gross deficits Cardiovascular: Regular Rate and Rhythm Respiratory: Clear to Auscultation GI: Soft and Non-Tender Extremities: Warm, Perfused, Other (R leg with cast in place.) Integumentary: Skin Intact without Lesion / Mass Psych: Appropriate Mood & Affect Assessment and Plan Problems: (1) Viral respiratory illness Status: Acute Assessment & Plan: The patient appeared to have a viral respiratory infection during her stay on ECF. She was treated with scheduled Xopenex nebs. Her O2 requirements remained stable. She did not have elevated temperature or WBC. (2) Trimalleolar fracture of right ankle Status: Acute Assessment & Plan: Ankle CT showed mildly displaced trimalleolar fracture and an additional fracture of the anterior lateral corner of the tibial plafond with small fracture fragments in the joint space. The patient had her ankle repaired by Dr. Tripathi. She was placed on Percocet for pain. She worked with PT and OT. She will continue PT though Home Health after discharge. (3) COPD (chronic obstructive pulmonary disease) Status: Chronic Assessment & Plan: She patient was continued on oxygen continuously. She was started on Xopenex nebulizer treatments tid with good improvement in her symptoms. This will be continued at discharge. (4) HTN (hypertension) Status: Chronic Assessment & Plan: She was continued on Lisinopril 2.5mg daily. (5) Hyperlipidemia Status: Chronic Assessment & Plan: She was continued on Simvastatin 40mg daily. (6) History of CVA (cerebrovascular accident) Status: Chronic Assessment & Plan: She uses a walker at home. She has very mild residual weakness to her right upper extremity. Balance is poor. She will continue PT at home with Home Health after discharge. (7) Family history of malignant hyperthermia Time Spent on Plan of Care: < 30 min Problem Qualifiers (1) Trimalleolar fracture of right ankle: Encounter type: subsequent encounter Fracture type: closed Fracture healing : with routine healing Qualified Codes: S82.851D - Displaced trimalleolar fracture of right lower leg, subsequent encounter for closed fracture with routine healing (2) HTN (hypertension): Hypertension type: essential hypertension Qualified Codes: I10 - Essential ( primary) hypertension MILAGROS DAVE MD Feb 20, 2018 14:56
[2018-02-20] MEDS: SIMVASTATIN 40 MG TAB PO SCH (20:07)
[2018-02-21] MEDS: LEVALBUTEROL 1.25 MG/3 ML NEB NEB SCH ×2 (06:00→11:08)
[2018-02-21] MEDS: LEVOTHYROXINE SOD 0.05 MG TAB PO SCH (06:07)
[2018-02-21 08:17] VITALS: BP 119/64
[2018-02-21] MEDS: GABAPENTIN 300 MG CAP PO SCH ×2 (08:18→13:54)
[2018-02-21] MEDS: LISINOPRIL 5 MG TAB PO SCH (08:19)
[2018-02-21] MEDS: SOLIFENACIN SUCCINATE 5 MG TAB PO SCH (08:19)
[2018-02-21] MEDS: DOCUSATE SODIUM 100 MG CAP PO SCH (08:19)
[2018-02-21] MEDS: POLYETHYLENE GLYCOL 17 GM PKT PO SCH (08:31)
--- NOTE | 2018-02-21 11:16 | PT ECF NOTE ---
Type of Note: Discharge Summary Primary Medical Diagnosis: Trimalleolar fracture of the R) ankle, *NWB Physical Therapy Discharge Date: 02/21/18 SUBJECTIVE: Prior Hospitalization: [facility] 01/29/18-02/01/18 Prior Level of Function: Tommy with RW, pt reports falls at home Prior Living Status: Mobile home, Living with grandson Community Services: No known needs Home Accessibility: 4 stairs with rails Equipment Owned: Front wheeled walker Medical Complications/Past Medical History: See EMR Psychosocial Support: Pt lives with grandson, daughter lives in town Pain Scale (0-10): 04/28 OBJECTIVE: Strength: Right Lower Extremity: DF: NT, splint in place Knee flexion: 4/5 Knee extension: 4/5 Hip flexion: 3+/5 Left Lower Extremity: DF: 4/5 Knee flexion: 4/5 Knee extension: 4/5 Hip flexion: 4/5 ROM: (please note any abnormalities) R) ankle in splint Sensation: (please note any abnormalities) WNL Other Neuro findings: None noted Bed Mobility: Tommy Transfers: SBA squat pivot to/from w/c and BSC Gait: Pt unable Stairs: Pt unable Timed Up and Go (>12 seconds indicated increased risk for falls): Pt unable ASSESSMENT: Danielle has met all PT goals and shows good safety and sequencing with squat pivot transfers from a variety of surfaces while maintaining NWB status of the R) LE. She is also able to complete w/c mobility with good tolerance and no verbal cues. She plans to d/c home with assistance from family as needed as well as [facility] services. She will have her home set up to allow for w/ c mobility as well as squat pivot transfers to/from the w/c, BSC, bed etc. Problem List/Current Limitations: Pain Decreased WB Decreased activity areli Decreased strength Decreased ROM Decreased balance Short Term Goals: (all met) 1: Pt to complete bed mobility with SBA 2: Pt to complete stand pivot transfers with RW, to/from W/C with SBA 3: Pt and pt's family to receive education regarding appropriate techniques to access home environment with 4 stairs. 4: Pt to complete w/c mobility x150' with turns and SBA Job Tracer Goals: Pt to discharge to safest discharge location with increased independence and decreased risk of falls (met) Patient Goals: Pt plans to d/c home (met) PLAN: The patient will /c home with assistance from family as needed as well as C services. She will have her home set up to allow for w/c mobility as well as squat pivot transfers to/from the w/c, BSC, bed etc. Thank you for this referral. If you have any questions, concerns, or comments about this report or plan, please contact me at . Regla Baca, PT, DPT MTDD
--- NOTE | 2018-02-21 11:37 | OT ECF NOTE ---
Type of Note: Discharge Note Primary Medical Diagnosis: Right trimalleolar fracture of ankle (pt. is NON WEIGHT BEARING) Occupational Therapy Evaluation Date: 02-01-18 SUBJECTIVE: Prior Hospitalization: On med/ surgical floor from 01/29/18 to 02/01/18. Prior Level of Function: Independent with all ADL's and laundry activities. Prior Living Status: Mobile home, Assist by family, Lives with grandson Community Services: No known needs Home Accessibility: Stairs with rails (family installing a ramp) Tub/shower combination-Pt recognizes that she will not be able to access shower due to narrow hallways and recommendation to not ambulate while she is NWB. Pt reports her family is able to set her up with bed baths. Pt will have a living room set-up with bed, bedside commode, and wheelchair within reach for squat pivot transfers Equipment Owned: Front wheeled walker Pt reports daughter has obtained recommended equipment (wheelchair, bedside commode, hospital bed vs. bed with bed rail Medical Complications/Past Medical History: Please refer to chart for details. Psychosocial Support: Very supportive family. Pain Scale (0-10): Pt frequently reporting no pain during treatments OBJECTIVE: Strength: MMT: Right Left Shoulder Flexion WFL WFL Elbow Flexion WFL WFL Wrist Extension WFL WFL Scaffold Erector WFL WFL (5= normal, 4= good, 3= fair, 2= poor, 1= trace) ROM: WFL Functional Transfer: Assistive Device: None (squat pivot transfers) Transfer Ability: SBA. Pt with good recognition of NWB on R LE. Plan to complete squat pivot transfers and w/c mobility. ADL: Upper body dressing: Assistive device: None Upper body dressing ability: Independent Lower body dressing: Assistive device: Clay Miller or with adaptive methods such as supine in bed and rolling side to side Lower body dressing ability: Independent Toileting: Assistive device: Bedside commode-Family plans to assist with emptying BSC Toileting ability: SBA Grooming/hygiene: Seated Assistive device: None Grooming ability: Set-up Bathing: Assistive device: Pt recognizes that she will likely have to complete bed baths at this time. Bathing ability: N/T Standardized Assessment: Penny Index of Activities of Daily Living- Pt. scored 8/20 on this index on evaluation. Pt scored a 11/20 at [id number] note (02/15/18). 14/20 at discharge (02/21/18). ASSESSMENT: Pt. is an 87 year old woman who fell at home while taking clothes out of her dryer. Pt. resides in [place] in a mobile home with her grandson, with a ramp to access home and no stairs within. Equipment recommendations have been provided and daughter has obtained setting up a living room set-up with bed , bedside commode, and wheelchair. Pt.'s grandson completes all the cooking, cleaning and grocery shopping and will be present to assist with all needs upon discharge. Pt. has met all skilled OT goals and desires to return home with living room set-up, assist from family, and HH PT/RN. Problem List/Current Limitations: Pain Decreased WB Decreased activity areli Decreased sensation Decreased coordination Short Term Goals: 1. Pt. to perform toileting activities with Mod A.GOAL MET NEW GOAL: Pt will be SBA toileting activities. GOAL MET. 2. Pt. to perform showering activities with Mod A. NOT MET. 3. Pt. to perform g/h activities with [place]. GOAL MET. 4. Pt. to perform dressing activities with Mod A. GOAL MET NEW GOAL: Pt will be Mod (I) UB/LB dressing with adaptive methods. GOAL MET. 5. Pt. to increase Penny Index Score by 2 points. GOAL MET. NEW GOAL: Pt will be (I) self-propulsion with wheelchair. GOAL MET. Mcc Goals: return home with assist from family and services. Patient Goals: return home with assist from family . Rehabilitation Prognosis: Fair Barriers to Discharge: NWB R LE PLAN: The patient will discharge home with a living room set-up, extensive assist from family, and HH PT/RN. Thank you for this referral. If you have any questions, concerns, or comments about this report or plan, please contact me at . Danielle Pacheco MS, OTR/L Occupational Therapist DOMINIC
[2018-02-21] MEDS ORDERED: ASPI-757 PO (12:01)
== END 2018-02-21 15:10 | disposition home health service (06) | DRG 560 ==
LOC: ECF 11:00
PROVIDERS: ADMIT Internal Medicine; ATTEND Internal Medicine
DX: S82.851D Displaced trimalleolar fracture of right lower leg, subsequent encounter for closed fracture with routine healing (principal); I69.951 Hemiplegia and hemiparesis following unspecified cerebrovascular disease affecting right dominant side; S82.871D Displaced pilon fracture of right tibia, subsequent encounter for closed fracture with routine healing; J98.8 Other specified respiratory disorders; I10 Essential (primary) hypertension; J44.9 Chronic obstructive pulmonary disease, unspecified; E78.5 Hyperlipidemia, unspecified; G62.9 Polyneuropathy, unspecified; R01.1 Cardiac murmur, unspecified; Z66 Do not resuscitate; W18.39XD Other fall on same level, subsequent encounter; Y92.008 Other place in unspecified non-institutional (private) residence as the place of occurrence of the external cause; Y93.E2 Activity, laundry; Y99.8 Other external cause status; Z90.710 Acquired absence of both cervix and uterus; Z88.8 Allergy status to other drugs, medicaments and biological substances; Z87.891 Personal history of nicotine dependence; Z99.81 Dependence on supplemental oxygen
CPT/HCPCS: 36415; 82040; 82247; 82310; 82374; 82435; 82565; 82947; 84075; 84132; 84155; 84295; 84450; 84460; 84520; 85025; 94640; 94668; 97161; 97166; J0690; J1650; J1885; J2175; J7030

== ENCOUNTER 2018-02-06 08:00 | Day surgery (SDC) | payer MEDICARE ==
[2018-02-02 10:59] VITALS: Ht 172.7 cm; Wt 90.3 kg
[~2018-02-06] VITALS: Ht 172.7 cm; Wt 90.3 kg
[2018-02-06 06:17] VITALS: BP 171/88
[~2018-02-06 08:00] MED LIST changes: +BACITRACIN OINT 15 GM TUBE TP ONE; +DEXAMETHASONE SOD 4 MG/ML VIAL ONE; +FAMOTIDINE 20 MG TAB PO ONE; +GLYCOPYRROLATE 0.2 MG/ML SDV ONE; +HYDROCORTISONE 100 MG/2 ML IVP ONE; +KETAMINE HCL 200 MG/20 ML MDV ONE; +LIDO/EPI 2% MPF 1:200,000 20ML ONE; +LIDOCAINE MPF 1% 5 ML VIAL ONE; +LIDOCAINE/SOD BICARB 8.4% SYR ID ONE; +MIDAZOLAM 2 MG/2 ML VIAL IVP ONE; +MIDAZOLAM 2 MG/2 ML VIAL ONE; +NORMOSOL R SOLN(*) 1000 ML BAG 1,000 ML IV PRN; +ONDANSETRON 4 MG/2 ML VIAL ONE; +PROPOFOL EMUL(*) 10MG/ML 20 ML 20 ML ONE; +ROPIVACAINE 0.2% 20 ML VIAL ONE; +ROPIVACAINE 0.5% 20 ML VIAL ONE; +ceFAZolin(*) 2GM/D5W 50ML 50 ML IVPB ONE; +fentaNYL CITR 100 MCG/2 ML AMP ONE
[2018-02-06] MEDS ORDERED: fentaNYL CITR 100 MCG/2 ML AMP ONE ×2 (09:28→09:45)
[2018-02-06] MEDS ORDERED: ONDANSETRON 4 MG/2 ML VIAL IVP PRN (09:40)
[2018-02-06] MEDS ORDERED: FLUSH 10 ML SYR IVP PRN (09:40)
[2018-02-06] MEDS ORDERED: MAGNESIUM HYDROXIDE* 30ML UDCP PO PRN (09:40)
[2018-02-06] MEDS ORDERED: ZOLPIDEM TARTRATE 5 MG TAB PO PRN (09:40)
[2018-02-06] MEDS ORDERED: MEPERIDINE 50 MG/ML SYR IVP PRN (09:40)
[2018-02-06] MEDS ORDERED: BISACODYL 10 MG SUPP PR PRN (09:40)
[2018-02-06] MEDS ORDERED: NALOXONE HCL 0.4 MG/ML VIAL IVP PRN (09:40)
[2018-02-06] MEDS ORDERED: PROMETHAZINE 25 MG/ML 1 ML AMP IVP PRN (09:40)
--- NOTE | 2018-02-06 11:40 | OPERATIVE REPORT 1 ---
EVENT DATE: February 06, 2018 SURGEON: Larry Tripathi MD ANESTHESIOLOGIST: Joshua Staples MD ANESTHESIA: Spinal with a popliteal block PATIENT OBSERVER: Efe Velázquez PA-C PREOPERATIVE DIAGNOSIS Right trimalleolar ankle fracture. POSTOPERATIVE DIAGNOSIS Right trimalleolar ankle fracture. PROCEDURE PERFORMED Right open reduction internal fixation, trimalleolar ankle fracture. TOURNIQUET TIME Less than an hour. OPERATION Patient was brought to he operating room, placed in supine position, a bump placed under her right hip. Right lower extremity was prepped and draped in normal sterile fashion using Prevail. Sterile stockinette, sterile U drape and sterile extremity drape were placed over the lower extremity, and stockinette was then sized, rolled above knee and held with a Coban. Esmarch was then used to exsanguinate the lower extremity and tourniquet turned up to 300 mmHg. First incision was made directly over the lateral malleolus just a little bit anterior. Skin was incised with 15 blade down to subcutaneous tissue. Subcutaneous tissue was bluntly dissected all the way down to the fracture site. We also went distally down to the anterior joint, due to the fact that there was some comminution on CT scan there. Once I got down to the fracture site, I cleaned the fracture site out. I actually opened the fracture site out to be able to get into the anterior lateral aspect of the ankle joint. There we found significant comminution of the anterior process, and it had a large piece of cartilage associated with it. This was not possible to be replaced. I then removed that piece. We then washed out the ankle joint, made sure there were no more cartilage injuries. From here, I could actually see the posterior fragment, and it was actually not as big as assessed before. As a matter of fact, it reduced as I brought the fibula back around almost perfectly. At this point, I placed a lobster clamp across the fracture site of the fibula and reduced it. I brought fluoroscopy in, AP and lateral, found to have excellent reduction. I then put a 6 hole one-third tubular locking plate on the posterolateral aspect of the fibula, locked it distally and proximally, and then due to the comminution at the fracture site, I used a lag screw to hold the pieces in place. I checked fluoroscopy again, AP and lateral, found to have excellent length and reduction. At this point, I decided to turn my attention to the medial side. A small incision was made directly over the medial malleolus, skin incised with 15 blade down to subcutaneous tissue, subcutaneous tissue bluntly dissected down to the fracture site. Fracture site was then opened. There was found to have some comminution anteriorly of the medial fragment. This led itself to having a difficult time to reducing it, because every time we got it in the right position, it collapsed due to the comminution. Once we felt we had a good alignment of the mortise under x-ray, a two-point reduction clamp was placed, and fluoroscopy was identified. [place] that we had a good reduction. There was some collapsing of the medial malleolus on the anterior portion, but the majority of the joint looking directly at it over the medial side was congruent, no cartilage incongruency. Therefore, I decided to place two screws across it it in a 3.5/2.5 lag manner, one anterior, one posterior. We got good fixation of this again. There was just slight comminution anteriorly, which led to a little bit of collapse. I then closed using 3-0 Monocryl, bita, a big bulky Queen dressing. Patient went to recovery with no complications. DOMINIC
[2018-02-06] MEDS ORDERED: ceFAZolin(*) 2GM/D5W 50ML 50 ML IVPB SCH (15:00)
== END 2018-02-06 10:40 ==
LOC: OR 08:00
PROVIDERS: ATTEND Orthopaedic Surgery
DX: S82.854A Nondisplaced trimalleolar fracture of right lower leg, initial encounter for closed fracture (principal)
CPT/HCPCS: 27822; 94667; A9270; J1100; J1720; J2001; J2250; J2405; J2704; J2795; J3010; J3490; 76942; C1713; J0690

== ENCOUNTER 2018-06-22 17:10 | Emergency (ER) | payer MEDICARE ==
[2018-02-02 10:59] VITALS: Wt 88.6 kg
[~2018-06-22 17:10] MED LIST changes: +ASPI-757 PO; -BACITRACIN OINT 15 GM TUBE TP ONE; -DEXAMETHASONE SOD 4 MG/ML VIAL ONE; +DOCU-202 PO; -FAMOTIDINE 20 MG TAB PO ONE; -GLYCOPYRROLATE 0.2 MG/ML SDV ONE; -HYDROCORTISONE 100 MG/2 ML IVP ONE; -KETAMINE HCL 200 MG/20 ML MDV ONE; +LEVA1.2513 NEB; -LIDO/EPI 2% MPF 1:200,000 20ML ONE; -LIDOCAINE MPF 1% 5 ML VIAL ONE; -LIDOCAINE/SOD BICARB 8.4% SYR ID ONE; -MIDAZOLAM 2 MG/2 ML VIAL IVP ONE; -MIDAZOLAM 2 MG/2 ML VIAL ONE; -NORMOSOL R SOLN(*) 1000 ML BAG 1,000 ML IV PRN; -ONDANSETRON 4 MG/2 ML VIAL ONE; -OXYC-375 PO; +OXYC1TAB78 PO; -PROPOFOL EMUL(*) 10MG/ML 20 ML 20 ML ONE; -ROPIVACAINE 0.2% 20 ML VIAL ONE; -ROPIVACAINE 0.5% 20 ML VIAL ONE; -ceFAZolin(*) 2GM/D5W 50ML 50 ML IVPB ONE; -fentaNYL CITR 100 MCG/2 ML AMP ONE
--- NOTE | 2018-06-22 17:14 | ER Report ---
History and Physical Time Seen By : 17:14 HPI/ROS 88-year-old female who presents to the emergency department stating that last week she had multiple episodes of diarrhea that have since resolved. Her grandson however was concerned that she could be dehydrated so asked her to come to the emergency department. She denies any pain. She does not have any nausea or vomiting and no longer has diarrhea. She is taking by mouth. No fever chills. No hematochezia or hematemesis. She states that if her grandson hadn't insisted that she come to the emergency department, she would not have come because she is feeling much better. Remainder of the 14 system rev: Yes Allergies: Coded Allergies: diphenhydramine (Verified Adverse Reaction, Mild, 01/29/18) Uncoded Allergies: ANESTHETICS (Allergy, Severe, MALIGNANT HYPERTHERMIA, 02/24/09) Home Meds Active Scripts Aspirin (ASPIRIN) 325 Mg Tablet, 325 MG PO DAILY for 30 Days, #30 TAB Take for 30 days for DVT prevention and then go back to aspirin 81mg daily. Prov:MILAGROS DAVE MD 02/21/18 Levalbuterol Hcl (LEVALBUTEROL HCL) 1.25 Mg/3 Ml Vial.neb, 1.25 MG NEB TIDR, #1 BOX 3 Refills Prov:MILAGROS DAVE MD 02/20/18 Docusate Sodium (DOCUSATE SODIUM) 100 Mg Capsule, 100 MG PO BID, #60 CAPSULE Prov:MILAGROS DAVE MD 02/20/18 Reported Medications Bismuth Subsalicylate (Kaopectate) 262 Mg Tablet 06/22/18 Solifenacin Succinate (VESICARE) 5 Mg Tablet, 5 MG PO DAILY 01/29/18 Gabapentin (GABAPENTIN) 300 Mg Capsule, 300 MG PO TID, CAPSULE 01/29/18 Levothyroxine Sodium (LEVOTHYROXINE SODIUM) 50 Mcg Tablet, 50 MCG PO QDAY, TAB 01/29/18 Oxycodone Hcl/Acetaminophen (OXYCODONE-ACETAMINOPHEN 10-325) 1 Each Tablet, 1 TAB PO QID Y for PAIN 01/29/18 Lisinopril (LISINOPRIL) 2.5 Mg Tablet, 2.5 MG PO QDAY 01/29/18 Simvastatin (SIMVASTATIN) 40 Mg Tablet, 40 MG PO HS, TAB 01/29/18 Reviewed Nurses Notes: Yes Old Medical Records Reviewed: Yes Hx Smoking: Yes Smoking Status: Former Smoker Exposure to Second Hand Smoke?: No Hx Substance Use Disorder: No Hx Alcohol Use: No Constitutional Vital Sign - Last 24 Hours 06/22/18 17:26 Temp 97.8 Pulse 63 Resp 18 B/P (MAP) 167/98 Pulse Ox 96 O2 Delivery Nasal Cannula Physical Exam General Appearance: The patient is alert, has no immediate need for airway protection and no current signs of toxicity. Eyes: Pupils equal and round no injection. Respiratory: Chest is non tender, lungs are clear to auscultation. Cardiac: regular rate and rhythm Gastrointestinal: Abdomen is soft and non tender, no masses, bowel sounds normal. Extremities have full range of motion and are non tender. Skin: No rashes or lesions. DIFFERENTIAL DIAGNOSIS: After history and physical exam differential diagnosis was considered for abdominal pain including but not limited to appendicitis, cholecystitis, gastritis and urinary tract infection. Medical Decision Making Data Points Result Diagram: 06/22/18 1745 06/22/18 1745 Laboratory Hematology Test 06/22/18 17:45 Red Blood Count 4.62 M/uL (4.17-5.56) Mean Corpuscular Volume 87.2 fL (80.0-96.0) Mean Corpuscular Hemoglobin 29.7 pg (26.0-33.0) Mean Corpuscular Hemoglobin Concent 34.0 g/dL (32.0-36.0) Red Cell Distribution Width 13.9 % (11.5-14.5) Mean Platelet Volume 10.5 fL (7.2-11.1) Neutrophils (%) (Auto) 68.6 % (39.4-72.5) Lymphocytes (%) (Auto) 23.0 % (17.6-49.6) Monocytes (%) (Auto) 6.7 % (4.1-12.4) Eosinophils (%) (Auto) 1.1 % (0.4-6.7) Basophils (%) (Auto) 0.6 % (0.3-1.4) Nucleated RBC Relative Count (auto) 0.0 /100WBC Neutrophils # (Auto) 6.3 K/uL (2.0-7.4) Lymphocytes # (Auto) 2.1 K/uL (1.3-3.6) Monocytes # (Auto) 0.6 K/uL (0.3-1.0) Eosinophils # (Auto) 0.1 K/uL (0.0-0.5) Basophils # (Auto) 0.1 K/uL (0.0-0.1) Nucleated RBC Absolute Count (auto) 0.00 K/uL Sodium Level 139 mmol/L (137-145) Potassium Level 3.7 mmol/L (3.5-5.0) Chloride Level 101 mmol/L (98-107) Carbon Dioxide Level 28 mmol/L (22-31) Blood Urea Nitrogen 13 mg/dl (7-18) Creatinine 0.50 mg/dl (0.52-1.04) Glomerular Filtration Rate Calc > 60.0 Random Glucose 113 mg/dl (75-110) Calcium Level 9.2 mg/dl (8.4-10.2) Total Bilirubin 0.8 mg/dl (0.2-1.3) Aspartate Amino Transf (AST/SGOT) 29 U/L (0-35) Alanine Aminotransferase (ALT/SGPT) 31 U/L (0-56) Alkaline Phosphatase 75 U/L (0-126) Total Protein 7.0 g/dl (6.3-8.2) Albumin 4.4 g/dl (3.5-5.0) Chemistry Test 06/22/18 17:45 White Blood Count 9.2 k/uL (4.5-11.0) Red Blood Count 4.62 M/uL (4.17-5.56) Hemoglobin 13.7 g/dL (12.0-16.0) Hematocrit 40.3 % (34.0-47.0) Mean Corpuscular Volume 87.2 fL (80.0-96.0) Mean Corpuscular Hemoglobin 29.7 pg (26.0-33.0) Mean Corpuscular Hemoglobin Concent 34.0 g/dL (32.0-36.0) Red Cell Distribution Width 13.9 % (11.5-14.5) Platelet Count 197 K/uL (150-450) Mean Platelet Volume 10.5 fL (7.2-11.1) Neutrophils (%) (Auto) 68.6 % (39.4-72.5) Lymphocytes (%) (Auto) 23.0 % (17.6-49.6) Monocytes (%) (Auto) 6.7 % (4.1-12.4) Eosinophils (%) (Auto) 1.1 % (0.4-6.7) Basophils (%) (Auto) 0.6 % (0.3-1.4) Nucleated RBC Relative Count (auto) 0.0 /100WBC Neutrophils # (Auto) 6.3 K/uL (2.0-7.4) Lymphocytes # (Auto) 2.1 K/uL (1.3-3.6) Monocytes # (Auto) 0.6 K/uL (0.3-1.0) Eosinophils # (Auto) 0.1 K/uL (0.0-0.5) Basophils # (Auto) 0.1 K/uL (0.0-0.1) Nucleated RBC Absolute Count (auto) 0.00 K/uL Glomerular Filtration Rate Calc > 60.0 Calcium Level 9.2 mg/dl (8.4-10.2) Total Bilirubin 0.8 mg/dl (0.2-1.3) Aspartate Amino Transf (AST/SGOT) 29 U/L (0-35) Alanine Aminotransferase (ALT/SGPT) 31 U/L (0-56) Alkaline Phosphatase 75 U/L (0-126) Total Protein 7.0 g/dl (6.3-8.2) Albumin 4.4 g/dl (3.5-5.0) ED Course/Re-evaluation ED Course 88-year-old female who presents to the emergency department with a complaint of multiple loose bowel movements earlier in the week which have since resolved. She is taking by mouth adequately. No nausea or vomiting. She has no abdominal pain no chest pain or shortness of breath, and no urinary symptoms. She is eager to leave the emergency department, because she said she feels well and at her baseline. She does not need any imaging. Her labs are within normal limits. She is taking by mouth and does not intravenous hydration at this time. Her daughter is at the bedside, and they will follow up with her primary care physician. Decision to Disposition Date: Jun 22, 2018 Decision to Disposition Time: 18:30 Depart Departure Latest Vital Signs Vital Signs Date Time Temp Pulse Resp B/P (MAP) Pulse Ox O2 Delivery O2 Flow Rate FiO2 06/22/18 17:26 97.8 63 18 167/98 96 Nasal Cannula Impression: Primary Impression: Diarrhea Condition: Improved Disposition: HOME OR SELF-CARE Referrals: RADHA HANKS DO (PCP) Patient Instructions: Acute Diarrhea (GEN) Problem Qualifiers Primary Impression: Diarrhea Diarrhea type: unspecified type Qualified Codes: R19.7 - Diarrhea, unspecified RAHUL GARDNER MD Jun 22, 2018 17:14
[2018-06-22] MEDS ORDERED: BISM262T27 (17:52)
[2018-06-22 18:00] VITALS: BP 148/78
[2018-06-22 18:11] LABS: PLATELET COUNT, AUTOMATED 197 K/uL (150-450)
== END 2018-06-22 18:30 | disposition home or self-care (01) ==
LOC: ER 17:27
DX: R19.7 Diarrhea, unspecified (principal); Z87.891 Personal history of nicotine dependence
CPT/HCPCS: 82040; 82247; 82310; 82374; 82435; 82565; 82947; 84075; 84132; 84155; 84295; 84450; 84460; 84520; 85025; 99282

== ENCOUNTER 2019-05-25 05:25 | Emergency (ER) | payer MEDICARE ==
[2018-02-02 10:59] VITALS: Wt 81.6 kg
--- NOTE | 2019-05-25 05:29 | ER Report ---
History and Physical Time Seen By MD: 05:27 HPI/ROS CHIEF COMPLAINT: Fall, HISTORY OF PRESENT ILLNESS: 89-year-old female brought in by EMS from home after a fall she sustained a blow to her right orbit. There is swelling of her right eyebrow and bruising. She denies head pain, neck pain, chest pain, shortness of breath. She denies syncope. She has a history of a distant CVA, and gets around with a walker and has residual right-sided weakness. Patient takes no blood thinners. She is on aspirin. REVIEW OF SYSTEMS: Respiratory: No cough, no dyspnea. Cardiovascular: No chest pain, no palpitations. Gastrointestinal: No vomiting, no abdominal pain. Musculoskeletal: No back pain. Allergies: Coded Allergies: diphenhydramine (Verified Adverse Reaction, Mild, 05/25/19) Uncoded Allergies: ANESTHETICS (Allergy, Severe, MALIGNANT HYPERTHERMIA, 02/24/09) Home Meds Active Scripts Levalbuterol Hcl (LEVALBUTEROL HCL) 1.25 Mg/3 Ml Vial.neb, 1.25 MG NEB TIDR, #1 BOX 3 Refills Prov:MILAGROS DAVE MD 02/20/18 Reported Medications Aspirin (ASPIRIN) 81 Mg Tab.chew, 81 MG PO QDAY, TAB.CHEW 11/13/18 Bismuth Subsalicylate (Kaopectate) 262 Mg Tablet 06/22/18 Solifenacin Succinate (VESICARE) 5 Mg Tablet, 5 MG PO DAILY 01/29/18 Gabapentin (GABAPENTIN) 300 Mg Capsule, 300 MG PO TID, CAPSULE 01/29/18 Levothyroxine Sodium (LEVOTHYROXINE SODIUM) 50 Mcg Tablet, 50 MCG PO QDAY, TAB 01/29/18 Oxycodone Hcl/Acetaminophen (OXYCODONE-ACETAMINOPHEN 10-325) 1 Each Tablet, 1 TAB PO QID PRN for PAIN 01/29/18 Lisinopril (LISINOPRIL) 2.5 Mg Tablet, 2.5 MG PO QDAY 01/29/18 Simvastatin (SIMVASTATIN) 40 Mg Tablet, 40 MG PO HS, TAB 01/29/18 Past Medical/Surgical History Problems: (1) Trimalleolar fracture of right ankle Status: Acute Assessment & Plan: Ankle CT shows mildly displaced trimalleolar fracture and an additional fracture of the anterior lateral corner of the tibial plafond with small fracture fragments in the joint space. The patient had her ankle repaired today by Dr. Tripathi. She will continue Percocet for pain, with Demerol for break through pain. (2) COPD (chronic obstructive pulmonary disease) Status: Chronic Assessment & Plan: She uses oxygen continuously. (3) HTN (hypertension) Status: Chronic Assessment & Plan: She is on Lisinopril 2.5mg daily. (4) Hyperlipidemia Status: Chronic Assessment & Plan: She is on Simvastatin 40mg daily. (5) History of CVA (cerebrovascular accident) Status: Chronic Assessment & Plan: She uses a walker at home. She has very mild residual weakness to her right upper extremity. Balance is poor. (6) Family history of malignant hyperthermia Reviewed Nurses Notes: Yes Old Medical Records Reviewed: Yes Hx Smoking: Yes Smoking Status: Former Smoker Exposure to Second Hand Smoke?: No Hx Substance Use Disorder: No Hx Alcohol Use: No Constitutional Vital Sign - Last 24 Hours 05/25/19 05/25/19 05/25/19 05/25/19 05:27 05:28 05:30 05:35 Temp 98.1 Pulse 82 68 Resp 17 B/P (MAP) 153/105 153/105 (121) 164/105 (124) Pulse Ox 90 92 O2 Delivery Nasal Cannula 05/25/19 05/25/19 05/25/19 05/25/19 06:09 06:30 06:35 06:40 Pulse 61 65 B/P (MAP) 137/89 (105) 138/76 (96) Pulse Ox 94 95 05/25/19 07:00 B/P (MAP) 153/84 (107) Physical Exam Vital signs stable, blood pressure mildly elevated afebrile, pulse ox normal General Appearance: The patient is alert, has no immediate need for airway protection and no current signs of toxicity. Alert and oriented, no acute distress, palpation of the head and neck reveals no tenderness or trauma. There is ecchymosis over the right eyebrow focal hematoma on the lateral aspect HEENT: Pupils equal and round no injection. TMs normal, oropharynx without redness or exudate, facial bones intact on palpation Respiratory: Chest is non tender, lungs are clear to auscultation. Cardiac: [regular rate and rhythm] Gastrointestinal: Abdomen is soft and non tender, no masses, bowel sounds normal. Musculoskeletal: Neck: Neck is supple and non tender. Extremities have full range of motion and are non tender. Skin: No rashes or lesions. Neuro: Alert and oriented 3, cranial nerves II through XII intact motor 5/5 all groups, sensory intact to light touch 4 DIFFERENTIAL DIAGNOSIS: After history and physical exam differential diagnosis was considered for head injury including but not limited to concussion, skull fracture, intraparenchymal contusion, subarachnoid, subdural and epidural hematoma. Medical Decision Making EKG/Imaging Imaging Results: CT scan of the head without contrast was obtained. The results of the study are no acute traumatic intracranial findings. The study was read by the radiologist. I viewed the images myself on the PACS system. ED Course/Re-evaluation ED Course Patient was admitted to an examination room by EMS. H&P was done. The differential diagnoses was considered. Patient voices no complaints. She has no headache. She has acute hematoma over the lateral aspect of her right eyebrow. Patient has a nonfocal neurologic examination. She has a history of a previous CVA. Patient sent for head CT without contrast is unremarkable for acute intracranial trauma. Patient's advised head injury precautions and treatment of a contusion. Patient be discharged home to the care of her son. Decision to Disposition Date: May 25, 2019 Decision to Disposition Time: 06:47 Depart Departure Latest Vital Signs Vital Signs Date Time Temp Pulse Resp B/P (MAP) Pulse Ox O2 Delivery O2 Flow Rate FiO2 05/25/19 07:00 153/84 (107) 05/25/19 06:40 65 95 05/25/19 05:27 98.1 17 Nasal Cannula Impression: Primary Impression: Contusion of right eyebrow Additional Impressions: Hypertension Hyperlipidemia History of CVA (cerebrovascular accident) COPD (chronic obstructive pulmonary disease) Condition: Improved Disposition: HOME OR SELF-CARE Referrals: RADHA HANKS DO (PCP) Patient Instructions: Contusion in Adults (ED), Head Injury (ED) Additional Instructions: Follow-up with your primary care if unimproved in 3-5 days. Problem Qualifiers Primary Impression: Contusion of right eyebrow Encounter type: initial encounter Qualified Codes: S00.11XA - Contusion of right eyelid and periocular area, initial encounter Additional Impressions: Hypertension Hypertension type: essential hypertension Qualified Codes: I10 - Essential (primary) hypertension Hyperlipidemia Hyperlipidemia type: unspecified Qualified Codes: E78.5 - Hyperlipidemia, unspecified COPD (chronic obstructive pulmonary disease) COPD type: unspecified COPD Qualified Codes: J44.9 - Chronic obstructive pulmonary disease, unspecified EVELYN LAI DO May 25, 2019 05:29
--- NOTE | 2019-05-25 06:27 | RADIOLOGY IMAGING REPORT ---
FACILITY: [facility] - [place] PATIENT NAME: Danielle Jaime : 1930 MR: [id number] V: [id number] EXAM DATE: ORDERING PHYSICIAN: EVELYN LAI TECHNOLOGIST: Location: [facility] - [place] Patient: Danielle Jaime : 1930 Visit/Account:[id number] Date of Sevice: 05/25/[address] scan without contrast COMPARISONS: None ADDITIONAL PERTINENT HISTORY: Fall with right orbital swelling TECHNIQUE: Multiple axial images were obtained from the skull base to the vertex without IV contrast . One of the following dose optimization techniques was utilized in the performance of this exam: Aut omated exposure control; adjustment of the mA and/or kV according to the patient's size; or use of an iterative reconstruction technique. Specific details can be referenced in the facility's radiology CT exam operational policy. FINDINGS: Midline shift: Negative Ventricles: Moderate enlargement of the lateral and third ventricles. Brain parenchyma: Patchy hypoattenuation within the periventricular and subcortical white matter, no nspecific but likely representing small vessel ischemic change on a chronic basis. No intraparenchyma l hemorrhage or mass effect. Extra-axial spaces: Moderate cerebral atrophy. Intracranial vasculature: Cavernous internal carotid and distal vertebral artery calcifications. Oth erwise negative Osseous structures: Negative Paranasal sinuses and mastoid air cells: Negative Surrounding soft tissues and orbits: Right periorbital soft tissue hematoma. IMPRESSION: 1. Age related changes as described above. 2. No evidence of acute intracranial pathology. 3. Right periorbital soft tissue hematoma. Report Dictated By: Valdo Fermin MD at 05/25/2019 6:19 AM Report E-Signed By: Valdo Fermin MD at 05/25/2019 6:21 AM WSN:[id number]
[2019-05-25 07:00] VITALS: BP 153/84
== END 2019-05-25 07:15 | disposition home or self-care (01) ==
LOC: ER 05:39
DX: S00.11XA Contusion of right eyelid and periocular area, initial encounter (principal); E78.5 Hyperlipidemia, unspecified; I10 Essential (primary) hypertension; J44.9 Chronic obstructive pulmonary disease, unspecified; Z86.73 Personal history of transient ischemic attack (TIA), and cerebral infarction without residual deficits; Z87.891 Personal history of nicotine dependence; Z79.899 Other long term (current) drug therapy; Z99.81 Dependence on supplemental oxygen
CPT/HCPCS: 70450; 99284

== ENCOUNTER → 2019-05-25 | Outpatient (CLI) | payer MEDICARE ==
[2018-02-02 10:59] VITALS: BMI 34.3
[~2019-05-25] MED LIST changes: +ASPI81TA94 PO; +BISM262T27
== END ==
LOC: AMB 04:47
PROVIDERS: ATTEND Nurse Practitioner
DX: S00.11XA Contusion of right eyelid and periocular area, initial encounter (principal); R53.1 Weakness; W19.XXXA Unspecified fall, initial encounter
CPT/HCPCS: A0425; A0427